=== PATIENT | male | born 1965 | race Caucasian/White ===

== ENCOUNTER 2025-01-18 18:40 | Inpatient (IN) | payer OTHER ==
[~2025-01-18] VITALS: Ht 175.3 cm; Wt 98.9 kg
[~2025-01-18 18:40] MED LIST: AMIT10 PO; ASPI81CH PO; CARV25 PO; DOXE75C PO; Enoxaparin 40 MG/0.4 ML SYR SC SCH; GABA400 PO; LEVE500 PO; LISI5 PO; LOVASA; METFORMIN HCL1000 MG PO; PAXIL40 M1 PO; POTASSIUM GLUC; PRAM.125 PO; PRAV10 PO; VITAMIN D2; [UNRECOGNIZED DRUG - CODE]
[2025-01-18] MEDS ORDERED: Lactated Ringer's 1,000 ML IV ONE (19:10)
[2025-01-18 19:40] LABS: BASOPHILS ABSOLUTE AUTO 0.05 K/mm3 (0.00-0.23); BASOPHILS PERCENT AUTO 0 % (0-2); EOSINOPHILS ABSOLUTE AUTO 0.09 K/mm3 (0.00-0.68); EOSINOPHILS PERCENT AUTO 1 % (0-6); Hematocrit 28.7 % (37.0-53.0); Hemoglobin 9.3 g/dL (13.5-17.5); IMMATURE GRAN PERCENT AUTO 1 % (0-1); LYMPHOCYTES ABSOLUTE AUTO 0.62 K/mm3 (0.84-5.20); LYMPHOCYTES PERCENT AUTO 5 % (21-46); MONOCYTES ABSOLUTE AUTO 0.82 K/mm3 (0.16-1.47); MONOCYTES PERCENT AUTO 6 % (4-13); Mean Corpuscular HGB 24.5 pg (26.0-34.0); Mean Corpuscular HGB Conc 32.4 g/dL (31.5-36.5); Mean Corpuscular Volume 76 fL (80-100); Mean Platelet Volume 9.2 fL (9.1-12.4); NEUTROPHILS ABSOLUTE AUTO 11.71 K/mm3 (1.96-9.15); NEUTROPHILS PERCENT AUTO 88 % (41-73); Platelet Count 243 K/mm3 (150-400); RDW Coefficient Variation 17.7 % (11.7-14.2); RDW Standard Deviation 48.8 fL (35.1-46.3); Red Blood Cell Count 3.79 M/mm3 (4.30-5.90); White Blood Cell Count 13.39 K/mm3 (4.00-11.30)
[2025-01-18 19:48] LABS: Albumin, Blood 2.5 g/dL (3.4-5.0); Albumin/Globulin Ratio 0.6 (0.8-1.8); Bilirubin, Total 0.4 mg/dL (0.1-1.0); Bun/Creatinine Ratio 30.9 (12.0-20.0); Calcium, Blood 8.5 mg/dL (8.5-10.1); Creatinine, Blood 1.36 mg/dL (0.60-1.20); Globulin, Blood 3.9 g/dL (2.2-4.0); Potassium, Blood 4.4 mmol/L (3.5-5.5); Total Protein, Blood 6.4 g/dL (6.4-8.2)
[2025-01-18 19:52] LABS: CORONAVIRUS COVID-19 AG Negative (NEGATIVE); INFLUENZA A AG Negative (NEGATIVE); INFLUENZA B AG Negative (NEGATIVE)
[2025-01-18] MEDS ORDERED: Piperacillin/Tazobactam Sod 3.375 GM in NS 100 ML IV ONE (20:10)
[2025-01-18] MEDS ORDERED: NS 1,000 ML IV SCH (20:20)
[2025-01-18 20:36] LABS: Base Excess Venous -4.9 mmol/L; Bicarbonate Venous 20.9 mmol/L (24.0-30.0); pH Blood Venous 7.41 (7.34-7.37)
[2025-01-18 20:57] LABS: Source, Urine Clean Catch
[2025-01-18 21:06] LABS: Appearance, Urine Clear (Clear); Bilirubin, Urine Neg (Neg); Blood, Urine 3+ (Neg); Color, Urine Yellow (P-Yellow); Glucose Qualitative, Urine 2+ (Neg); Ketones, Urine Neg (Neg); Leukocyte Esterase, Urine Neg (Neg); Nitrite, Urine Neg (Neg); Protein, Urine 4+ (Neg); Specific Gravity, Urine 1.015 (1.003-1.022); Urobilinogen, Urine NORM (Normal)
[2025-01-18 21:15] LABS: Amorphous Light (0-Heavy); Bacteria Rare /hpf; Red Blood Cells, Urine 0-2 /hpf (0-2); Squamous Epithelial Cells Few /hpf (Few); White Blood Cells, Urine 0-2 /hpf (0-5)
[2025-01-18] MEDS ORDERED: Vancomycin HCL 2,000 MG in NS 500 ML IV ONE (21:20)
[2025-01-18 22:30] VITALS: BP 159/80
[2025-01-18] MEDS ORDERED: AMLODIPINE BESY10 MG PO (22:42)
[2025-01-18] MEDS ORDERED: BASAGLAR K100 UNIT/3 SC (22:44)
[2025-01-18] MEDS ORDERED: TRAZ50 PO (22:46)
[2025-01-18] MEDS ORDERED: JANTOVEN2 MG PO (22:47)
[2025-01-18] MEDS ORDERED: LIPITOR80 MG PO (22:49)
[2025-01-18] MEDS ORDERED: ENOX120I SC (22:51)
[2025-01-18] MEDS ORDERED: ARIPIPRAZOLE2 M1 PO (22:53)
[2025-01-18] MEDS ORDERED: HUMALOG KW100 UNIT/1 SC (23:00)
[2025-01-18] MEDS ORDERED: FentaNYL Citrate 50 MCG/ML 2 ML Injection IV PRN (23:10)
[2025-01-18] MEDS ORDERED: Ondansetron HCl 2 MG / ML 2ML Vial IV PRN (23:10)
[2025-01-18] MEDS ORDERED: Acetaminophen 325 MG TABLET PO PRN (23:15)
[2025-01-18] MEDS ORDERED: NS 1,000 ML IV ONE (23:15)
[2025-01-18] MEDS ORDERED: FLU VACC TS2024-25(6MOS UP)/PF 45 MCG/0.5 ML SYRINGE IM ONE (23:15)
[2025-01-18] MEDS ORDERED: ARIPiprazole 10 MG Tab PO SCH (23:50)
[2025-01-18] MEDS ORDERED: PARoxetine HCl 20 MG Tab PO SCH (23:50)
[2025-01-19] MEDS ORDERED: CeFAZolin Sodium 1,000 MG in NS 50 ML IV SCH
[2025-01-19] MEDS ORDERED: Insulin Glargine-Yfgn 100 Unit/mL 3 ML SYR SC SCH (00:13)
[2025-01-19 00:48] LABS: International Normalized Ratio 3.55; Prothrombin Time Results 34.6 Sec (9.7-11.5)
[2025-01-19] MEDS ORDERED: Heparin Sodium,Porcine/0.5 NS 500 ML IV SCH ×2 (01:00→21:45)
[2025-01-19 04:00] VITALS: BP 134/79
[2025-01-19 04:06] LABS: Albumin, Blood 2.4 g/dL (3.4-5.0); Albumin/Globulin Ratio 0.6 (0.8-1.8); Bilirubin, Total 0.4 mg/dL (0.1-1.0); Bun/Creatinine Ratio 29.2 (12.0-20.0); Calcium, Blood 8.3 mg/dL (8.5-10.1); Creatinine, Blood 1.2 mg/dL (0.60-1.20); Globulin, Blood 3.8 g/dL (2.2-4.0); Potassium, Blood 4.1 mmol/L (3.5-5.5); Total Protein, Blood 6.2 g/dL (6.4-8.2)
[2025-01-19 04:07] LABS: BASOPHILS ABSOLUTE AUTO 0.04 K/mm3 (0.00-0.23); BASOPHILS PERCENT AUTO 0 % (0-2); EOSINOPHILS ABSOLUTE AUTO 0.01 K/mm3 (0.00-0.68); EOSINOPHILS PERCENT AUTO 0 % (0-6); Hematocrit 26.6 % (37.0-53.0); Hemoglobin 8.7 g/dL (13.5-17.5); IMMATURE GRAN ABSOLUTE AUTO 0.06 K/mm3 (0.00-0.10); IMMATURE GRAN PERCENT AUTO 1 % (0-1); LYMPHOCYTES PERCENT AUTO 6 % (21-46); MONOCYTES ABSOLUTE AUTO 0.72 K/mm3 (0.16-1.47); MONOCYTES PERCENT AUTO 7 % (4-13); Mean Corpuscular HGB 24.9 pg (26.0-34.0); Mean Corpuscular HGB Conc 32.7 g/dL (31.5-36.5); Mean Corpuscular Volume 76 fL (80-100); NEUTROPHILS ABSOLUTE AUTO 9.35 K/mm3 (1.96-9.15); NEUTROPHILS PERCENT AUTO 86 % (41-73); RDW Coefficient Variation 18.2 % (11.7-14.2); RDW Standard Deviation 49.9 fL (35.1-46.3); White Blood Cell Count 10.88 K/mm3 (4.00-11.30)
[2025-01-19 04:15] LABS: Mean Platelet Volume 10.1 fL (9.1-12.4); Platelet Count 216 K/mm3 (150-400)
[2025-01-19] MEDS ORDERED: CefTRIAXone Sodium 2,000 MG in NS 100 ML IV SCH (06:15)
--- NOTE | 2025-01-19 06:30 | NUR ---
SHIFT SUMMARY PT HAS TOLERATED NIGHT WELL WITH NO REAL CHANGES IN STATUS. PT ARRIVED TO PCU A&O X 4 AND HAS REMAINED SO FOR DURATION OF NIGHT. PT STATES NO COMPLAINT OF PAIN. PTs TEMPERATURE HAS FLUCTUATED WITH TMAX OF 101. PT HAS BEEN NPO SINCE MIDNIGHT AND HAS BEEN RESTING COMFORTABLY IN ROOM. WILL CONTINUE TO MONITOR UNTIL REPORT PASSED TO DAY SHIFT TEAM.
[2025-01-19] MEDS ORDERED: Insulin Human Lispro 100 Units/ML 3ML Syringe SC SCH (07:30)
[2025-01-19 08:36] VITALS: BP 158/81
[2025-01-19] MEDS ORDERED: Gabapentin 300 MG Cap PO SCH (09:00)
[2025-01-19 09:59] LABS: International Normalized Ratio 2.79
[2025-01-19] MEDS ORDERED: Vancomycin HCL 1,250 MG in NS 250 ML IV SCH (10:00)
[2025-01-19 10:52] LABS: Prothrombin Time Results 27.7 Sec (9.7-11.5)
[2025-01-19 11:07] VITALS: BP 139/79
[2025-01-19 16:31] VITALS: BP 175/86
[2025-01-19] MEDS ORDERED: LISI20 PO (17:58)
--- NOTE | 2025-01-19 18:02 | NUR ---
SHIFT SUMMARY: PT HAS BEEN A&Ox4, COOPERATIVE W/CARE, ABLE TO MAKE NEEDS KNOWN. PT's TEMPERATURE CONTINUES TO FLUCTUATE, MAX THIS SHIFT OF 100.3 THAT TITRATED DOWN W/OUT MEDICATION. PT W/HX OF AMPUTATIONS TO BLE, BELOW KNEE TO RLE AND TRANSMETATARSAL TO LLE. PODIATRY CONSULTATION COMPLETED THIS SHIFT, NO CHANGE IN ABX ORDERS AND NO CURRENT PLAN FOR SURGICAL INTERVENTION, WOUND CLEANED AND DRESSED THIS SHIFT. PT HAS DENIED SOB, O2 SATS >93% ON RA. PT HAS DENIED CHEST PAIN, TELEMETRY DC'd PER ORDERS AND PT TRANSITIONED TO MEDICAL STATUS. HEPARIN INFUSION ON SB PER ORDERS UNTIL INR IS BELOW A CERTAIN THRESHOLD, NEXT REDRAW SCHEDULED FOR 2100 TONIGHT. PT RESTING IN BED, CALL LIGHT IN REACH.
[2025-01-19] MEDS ORDERED: Lisinopril 20 MG Tab PO ONE (18:50)
[2025-01-19] MEDS ORDERED: AmLODIPine Besylate 5 MG Tab PO ONE (18:50)
[2025-01-19] MEDS ORDERED: Atorvastatin 40 MG Tab PO SCH (21:00)
[2025-01-19 21:21] LABS: Anti-Xa UFH, PHA Monitoring <0.10 IU/mL; International Normalized Ratio 2.34
[2025-01-19 21:23] LABS: Vancomycin, Trough 13.2 ug/mL (5.0-10.0)
[2025-01-19 21:30] VITALS: BP 178/84
[2025-01-19 21:41] LABS: Prothrombin Time Results 23.5 Sec (9.7-11.5)
[2025-01-20 04:08] VITALS: BP 153/84
[2025-01-20 04:24] LABS: BASOPHILS ABSOLUTE AUTO 0.04 K/mm3 (0.00-0.23); BASOPHILS PERCENT AUTO 0 % (0-2); EOSINOPHILS ABSOLUTE AUTO 0.12 K/mm3 (0.00-0.68); EOSINOPHILS PERCENT AUTO 1 % (0-6); Hematocrit 27.7 % (37.0-53.0); Hemoglobin 8.9 g/dL (13.5-17.5); IMMATURE GRAN ABSOLUTE AUTO 0.03 K/mm3 (0.00-0.10); IMMATURE GRAN PERCENT AUTO 0 % (0-1); LYMPHOCYTES ABSOLUTE AUTO 0.89 K/mm3 (0.84-5.20); LYMPHOCYTES PERCENT AUTO 10 % (21-46); MONOCYTES ABSOLUTE AUTO 0.69 K/mm3 (0.16-1.47); MONOCYTES PERCENT AUTO 8 % (4-13); Mean Corpuscular HGB 24.5 pg (26.0-34.0); Mean Corpuscular HGB Conc 32.1 g/dL (31.5-36.5); Mean Corpuscular Volume 76 fL (80-100); Mean Platelet Volume 9.2 fL (9.1-12.4); NEUTROPHILS ABSOLUTE AUTO 7.36 K/mm3 (1.96-9.15); NEUTROPHILS PERCENT AUTO 81 % (41-73); Platelet Count 220 K/mm3 (150-400); RDW Standard Deviation 50.2 fL (35.1-46.3); Red Blood Cell Count 3.63 M/mm3 (4.30-5.90); White Blood Cell Count 9.13 K/mm3 (4.00-11.30)
--- NOTE | 2025-01-20 04:25 | NUR ---
SHIFT SUMMARY PATIENT ALERT AND ORINETED X4. HAD NO COMPLAINTS OF PAIN OR SHORTNESS OF BREATH. ON ROOM AIR WITH SPO2 >90%. VITAL SIGNS STABLE. NO ACUTE ISSUES NOTED OVERNIGHT. WILL CONTINUE TO MONITOR. CALL LIGHT WITHIN REACH.
[2025-01-20 04:44] LABS: Bun/Creatinine Ratio 20.6 (12.0-20.0); Calcium, Blood 8.7 mg/dL (8.5-10.1); Creatinine, Blood 0.78 mg/dL (0.60-1.20); Potassium, Blood 3.4 mmol/L (3.5-5.5)
[2025-01-20] MEDS ORDERED: Dose Adjust by Pharmacy XX STA ×2 (05:53→13:35)
[2025-01-20] MEDS ORDERED: Heparin Sodium 5000 Units/ML 1ML MDV IV ONE ×3 (05:55→21:05)
[2025-01-20 08:48] VITALS: BP 168/80
[2025-01-20 09:50] LABS: Vancomycin, Trough 14.6 ug/mL (5.0-10.0)
[2025-01-20] MEDS ORDERED: Vancomycin HCL 1,500 MG in NS 250 ML IV SCH (10:30)
[2025-01-20] MEDS ORDERED: Potassium Chloride 10 Meq Tablet SA PO ONE (13:55)
--- NOTE | 2025-01-20 14:52 | NUR ---
SHIFT SUMMARY/TRANSFER: PT HAS BEEN A&Ox4, ABLE TO COMMUNICATE NEEDS AND IS COOPERATIVE W/CARE. PT DENIES SOB OR CHEST PAIN, STATES HE FEELS BETTER COMPARED TO DATABASE MODELER. RA SATS >93%. HEPARIN INFUSING PER ORDERS. PT CONTINUES 1-2 ASSIST FOR TRANSFERING, USING URINAL INDEPENDENTLY. DRESSING TO LLE SLIGHTLY SOILED, WOUND CARE COMPLETED AND NEW DRESSINGS APPLIED THIS SHIFT. PT EXPECTED TO REQUIRE ABX THERAPY BID FOR UP TO 6 WEEKS, PLAN FOR HOW THIS WILL BE BEST EXECUTED IS BEING DISCUSSED. PT RECEIVES NEW ROOM ASSIGNMENT IN MEDICAL DEPT, REPORT GIVEN TO PITA BRIGGS. PT IN PROCESS OF BEING TRANSFERED.
--- NOTE | 2025-01-20 17:41 | NUR ---
NO CHANGES SINCE PT HAS TRANSFERED FROM [facility]
[2025-01-20 19:27] VITALS: BP 160/81
--- NOTE | 2025-01-20 19:51 | NUR ---
CARE ASSUMED FOR THIS PATIENT. REPORT RECEIVED FROM DAY RN. PATIENT ALERT, ORIENTATED. ABLE TO MAKE NEEDS KNOWN AND ABLE TO PARTICIPATE IN BEDSIDE REPORT. CONTINUE CARE.
[2025-01-20] MEDS ORDERED: AmLODIPine Besylate 5 MG Tab PO SCH (21:00)
[2025-01-20] MEDS ORDERED: Lisinopril 20 MG Tab PO SCH (21:00)
[2025-01-20] MEDS ORDERED: NS 250 ML IV PRN (21:20)
[2025-01-20] MEDS ORDERED: TraZODone HCl 50 MG Tab PO ONE (23:35)
[2025-01-21 03:20] LABS: BASOPHILS ABSOLUTE AUTO 0.02 K/mm3 (0.00-0.23); BASOPHILS PERCENT AUTO 0 % (0-2); EOSINOPHILS ABSOLUTE AUTO 0.21 K/mm3 (0.00-0.68); EOSINOPHILS PERCENT AUTO 3 % (0-6); Hematocrit 26.8 % (37.0-53.0); Hemoglobin 8.7 g/dL (13.5-17.5); IMMATURE GRAN ABSOLUTE AUTO 0.03 K/mm3 (0.00-0.10); IMMATURE GRAN PERCENT AUTO 1 % (0-1); LYMPHOCYTES ABSOLUTE AUTO 1.17 K/mm3 (0.84-5.20); LYMPHOCYTES PERCENT AUTO 19 % (21-46); MONOCYTES ABSOLUTE AUTO 0.53 K/mm3 (0.16-1.47); MONOCYTES PERCENT AUTO 9 % (4-13); Mean Corpuscular HGB 24.4 pg (26.0-34.0); Mean Corpuscular HGB Conc 32.5 g/dL (31.5-36.5); Mean Corpuscular Volume 75 fL (80-100); NEUTROPHILS ABSOLUTE AUTO 4.28 K/mm3 (1.96-9.15); NEUTROPHILS PERCENT AUTO 69 % (41-73); Platelet Count 253 K/mm3 (150-400); RDW Coefficient Variation 17.8 % (11.7-14.2); RDW Standard Deviation 48.4 fL (35.1-46.3); Red Blood Cell Count 3.57 M/mm3 (4.30-5.90); White Blood Cell Count 6.24 K/mm3 (4.00-11.30)
[2025-01-21 03:24] LABS: Anion Gap 9 mmol/L (3-11); Blood Urea Nitrogen 15 mg/dL (8-24); Bun/Creatinine Ratio 16.6 (12.0-20.0); CO2, Blood 23 mmol/L (21-32); Calcium, Blood 8.6 mg/dL (8.5-10.1); Chloride, Blood 107 mmol/L (98-108); Creatinine, Blood 0.91 mg/dL (0.60-1.20); Glomerular Filtration Rate 96 (60-); Glucose, Blood 108 mg/dL (70-99); Magnesium, Blood 1.5 mg/dL (1.6-2.4); Phosphorus, Blood 3.4 mg/dL (2.5-4.9); Potassium, Blood 3.5 mmol/L (3.5-5.5); Sodium, Blood 135 mmol/L (136-145)
[2025-01-21 04:01] VITALS: BP 149/77
[2025-01-21] MEDS ORDERED: Dose Adjust by Pharmacy XX STA ×2 (04:44→09:50)
--- NOTE | 2025-01-21 05:13 | NUR ---
Patient appeared to have slept well last night. Had a one time dose of Trazadone. Heparin drip infusing. Left foot bebo wrapped. CDI Patient states he is not having any pain. Plan to continue with IV ABX.
[2025-01-21 07:37] VITALS: BP 139/82
[2025-01-21 09:31] LABS: Anti-Xa UFH, PHA Monitoring 0.41 IU/mL; International Normalized Ratio 1.42; Prothrombin Time Results 14.8 Sec (9.7-11.5)
[2025-01-21 16:16] VITALS: BP 187/74
--- NOTE | 2025-01-21 16:25 | NUR ---
NO ACUTE CHANGES THIS SHIFT. CHANGES DRESSING TO LLE. SKIN APPEAR MACERATED. SKIN CLEANSED CALCIUM ALGINATE ADDED TO VERY SMALL AREAS WERE EXUDATE APPEARED TO BE COMING FROM. NON ADHERENT DRESSING AND GUAZE, KERLEX WITH YESSY BANDAGE. REWRAPPED THIS AFTERNOON. APPEARS TO BE HELPING.
[2025-01-21] MEDS ORDERED: Warfarin Sodium 4 MG Tab PO SCH (18:00)
[2025-01-21] MEDS ORDERED: Nystatin 100,000 Unit/GM Ointment 15 GM TOP SCH (19:20)
[2025-01-21 19:25] VITALS: BP 180/72
[2025-01-21 22:41] LABS: Vancomycin, Trough 19.4 ug/mL (5.0-10.0)
[2025-01-22 03:12] VITALS: BP 184/76
--- NOTE | 2025-01-22 03:54 | NUR ---
SHIFT SUMMARY PT ALERT ORIENTED X 4 ABLE TO VERBALIZE NEEDS REMAINS ON BEDREST R/T RT AKA AND LT TOES AMPUTATION. DRESSING WAS CHANGED TO LT FOOT EBONY INTACT WITH SMALL AMOUNT OF SEROSANGUINOUS DRAINAGE. SITE LOOKS GOOD. REMAINS ON VANCO AND ROCEPHIN ORDERED. VANCO TROUGH WAS DONE AND WAS 19.4 NO CHANGES WERE MADE. WILL BE RECHECKED ON 01/23 AT 0900. CONTINUES ON HEPARIN AT 26U/KG/HR OR 42.1 ML/HR. LABS TO BE CHECKED THIS AM. PICC LINE INTACT TO RT UPPER ARM WITH SOME DRAINAGE UNDER DRESSING. NO C/O PAIN THIS SHIFT. BP REMAINS ELEVATED AT 180/72. ALL OTHER VSS ON RA SATTING AT 98%. WILL BE DCED TO [facility] WHEN ABLE. WILL REQUIRE 6 WEEKS OF IV ANTIBIOTICS. RESTING IN BED AT THIS TIME WITH CALL LIGHT IN REACH
[2025-01-22 05:00] LABS: BASOPHILS ABSOLUTE AUTO 0.05 K/mm3 (0.00-0.23); BASOPHILS PERCENT AUTO 1 % (0-2); EOSINOPHILS ABSOLUTE AUTO 0.26 K/mm3 (0.00-0.68); EOSINOPHILS PERCENT AUTO 4 % (0-6); Hematocrit 28.4 % (37.0-53.0); Hemoglobin 9.1 g/dL (13.5-17.5); IMMATURE GRAN ABSOLUTE AUTO 0.05 K/mm3 (0.00-0.10); IMMATURE GRAN PERCENT AUTO 1 % (0-1); LYMPHOCYTES ABSOLUTE AUTO 1.53 K/mm3 (0.84-5.20); LYMPHOCYTES PERCENT AUTO 26 % (21-46); MONOCYTES PERCENT AUTO 10 % (4-13); Mean Corpuscular HGB 24.8 pg (26.0-34.0); Mean Corpuscular Volume 77 fL (80-100); Mean Platelet Volume 8.8 fL (9.1-12.4); NEUTROPHILS ABSOLUTE AUTO 3.52 K/mm3 (1.96-9.15); NEUTROPHILS PERCENT AUTO 59 % (41-73); Platelet Count 244 K/mm3 (150-400); RDW Coefficient Variation 17.8 % (11.7-14.2); RDW Standard Deviation 49.9 fL (35.1-46.3); Red Blood Cell Count 3.67 M/mm3 (4.30-5.90); White Blood Cell Count 6.01 K/mm3 (4.00-11.30)
[2025-01-22 05:35] LABS: International Normalized Ratio 1.33; Prothrombin Time Results 13.9 Sec (9.7-11.5)
[2025-01-22 06:20] LABS: Albumin/Globulin Ratio 0.5 (0.8-1.8); Bilirubin, Total 0.2 mg/dL (0.1-1.0); Bun/Creatinine Ratio 17.4 (12.0-20.0); Calcium, Blood 8.8 mg/dL (8.5-10.1); Creatinine, Blood 0.86 mg/dL (0.60-1.20); Globulin, Blood 4.3 g/dL (2.2-4.0); Potassium, Blood 3.7 mmol/L (3.5-5.5); Total Protein, Blood 6.3 g/dL (6.4-8.2)
[2025-01-22 08:05] VITALS: BP 175/61
[2025-01-22] MEDS ORDERED: ACET325 PO (10:43)
[2025-01-22] MEDS ORDERED: CEFTRIAXONE2 G1 IV (10:43)
[2025-01-22] MEDS ORDERED: VANCOMYCIN HCL1 G1 IV (10:45)
[2025-01-22] MEDS ORDERED: VISBIOME 112.51 EACH PO (10:46)
[2025-01-22] MEDS ORDERED: ENOX100I SC (10:47)
[2025-01-22] MEDS ORDERED: HYDROCODONE-AC1 EA19 PO (10:48)
--- NOTE | 2025-01-22 11:00 | NUR ---
PT INR 1.33. PT ON HEPARIN DRIP FOR BRIDGE TO COUMADEN. PLAN TO DISCHARGE TODAY TO SNF. SPOKE WITH PHARMACIST. PT COULD RECEIVE 1 X DOSE OF LOVENOX BEFORE D/C AND CONTINUE LOVENOX BID UNTIL COUMADEN IS THERAPUTIC RANGE. AWAITING CALL BACK FROM DR. WATTS FOR ORDERS.
[2025-01-22] MEDS ORDERED: Enoxaparin 100 MG/ML 1ML SYR SC ONE (11:20)
--- NOTE | 2025-01-22 12:41 | NUR ---
REPORT GIVEN TO EDEL AGRCIA [facility]. PT DISCHARGED TO SNF WITH PICC LINE IN PLACE. ORIENTED X4, WOUND CARE COMPLETED BEFORE DISCHARGE.
[2025-01-22] MEDS ORDERED: Warfarin Sodium 4 MG Tab PO SCH (18:00)
== END 2025-01-22 11:23 | DRG 564 ==
LOC: ER 18:40 → PCU 20:53 → MEDS 20:53 → PCU 22:03 → MEDS 01-20 15:05
PROVIDERS: Family Medicine; Student in an Organized Health Care Education/Training Program; ADMIT Internal Medicine
PROC: 3E03329 Introduction of Other Anti-infective into Peripheral Vein, Percutaneous Approach (ICD-10-PCS; principal; 2025-01-18)
PROC: 02HV33Z Insertion of Infusion Device into Superior Vena Cava, Percutaneous Approach (ICD-10-PCS; 2025-01-18)
PROC: B548ZZA Ultrasonography of Superior Vena Cava, Guidance (ICD-10-PCS; 2025-01-18)
DX: T87.44 Infection of amputation stump, left lower extremity (principal); A41.9 Sepsis, unspecified organism; N17.9 Acute kidney failure, unspecified; M86.172 Other acute osteomyelitis, left ankle and foot; I10 Essential (primary) hypertension; Z28.21 Immunization not carried out because of patient refusal; Z89.422 Acquired absence of other left toe(s); Z79.899 Other long term (current) drug therapy; Z79.84 Long term (current) use of oral hypoglycemic drugs; Z79.82 Long term (current) use of aspirin; I25.2 Old myocardial infarction; Z89.511 Acquired absence of right leg below knee; Z79.4 Long term (current) use of insulin; E11.69 Type 2 diabetes mellitus with other specified complication; D64.9 Anemia, unspecified; E11.65 Type 2 diabetes mellitus with hyperglycemia; E11.40 Type 2 diabetes mellitus with diabetic neuropathy, unspecified; E78.5 Hyperlipidemia, unspecified; Z95.2 Presence of prosthetic heart valve; Z86.711 Personal history of pulmonary embolism; Z79.01 Long term (current) use of anticoagulants
CPT/HCPCS: 36415; 36569; 73590; 73630; 73701; 80048; 80053; 80069; 80202; 81001; 82803; 82947; 83605; 83735; 83880; 84145; 85025; 85520; 85610; 85730; 87428-QW; 96361; 96365; 99284-25; A9270; C1751; J0690; J0696; J1644; J1650; J1815; J2543; J3370; J7030; J7040; J7050; J7120; Q9967

== ENCOUNTER 2025-06-01 00:26 | Day surgery (SDC) | payer OTHER ==
[~2025-06-01 00:26] MED LIST changes: +ABILIFY MYCITE10 M2 PO; +ACET325 PO; +AMLODIPINE BESY10 MG PO; +ARIPIPRAZOLE2 M1 PO; +ASCO500 PO; +BASAGLAR K100 UNIT/3 SC; +CEFTRIAXONE2 G1 IV; +ENOX100I SC; +ENOX120I SC; -Enoxaparin 40 MG/0.4 ML SYR SC SCH; +FEROSUL325 M1 PO; +GABA300 PO; -GABA400 PO; +HUMALOG KW100 UNIT/1 SC; +HYDROCODONE-AC1 EA19 PO; +Hair, Skin & N1 EACH PO; +JANTOVEN2 MG PO; +LIPITOR80 MG PO; +LISI20 PO; +MIRAPEX PO; +PARO20 PO; -PAXIL40 M1 PO; +POTCHL20ER PO; +TRAZ50 PO; +VANCOMYCIN HCL1 G1 IV; +VISBIOME 112.51 EACH PO; +VITAMIN D325 MC3 PO; +ZENPEP DR 25,01 EAC1 PO; +ZENPEP PO; +ZESTRIL40 M1 PO
== END 2025-06-01 23:00 | disposition home or self-care (01) ==
LOC: WOUND 00:26
DX: T25.222A Burn of second degree of left foot, initial encounter (principal); E11.51 Type 2 diabetes mellitus with diabetic peripheral angiopathy without gangrene; D50.9 Iron deficiency anemia, unspecified; I25.10 Atherosclerotic heart disease of native coronary artery without angina pectoris; I10 Essential (primary) hypertension; G47.33 Obstructive sleep apnea (adult) (pediatric); Z89.511 Acquired absence of right leg below knee; Z79.4 Long term (current) use of insulin; Z79.84 Long term (current) use of oral hypoglycemic drugs; Z88.0 Allergy status to penicillin; Z88.8 Allergy status to other drugs, medicaments and biological substances
CPT/HCPCS: G0463

== ENCOUNTER 2025-07-29 13:07 | Inpatient (IN) | payer OTHER ==
[~2025-07-29] VITALS: Ht 172.7 cm; Wt 88.3 kg
[2025-07-29] MEDS ORDERED: NS 1,000 ML IV SCH ×2 (14:05→17:00)
[2025-07-29] MEDS ORDERED: Clindamycin 900mg in D5W 50ML 50 ML IV ONE (14:05)
[2025-07-29] MEDS ORDERED: Cefepime HCl 2,000 MG in NS 100 ML IV ONE (14:05)
[2025-07-29] MEDS ORDERED: FentaNYL Citrate 50 MCG/ML 2 ML Injection IV ONE ×2 (14:05→15:40)
[2025-07-29] MEDS ORDERED: Vancomycin (Pharmacy Consult) IV PRN (14:05)
[2025-07-29 14:28] LABS: BASOPHILS ABSOLUTE AUTO 0.03 K/mm3 (0.00-0.23); BASOPHILS PERCENT AUTO 0 % (0-2); EOSINOPHILS ABSOLUTE AUTO 0.03 K/mm3 (0.00-0.68); EOSINOPHILS PERCENT AUTO 0 % (0-6); Hematocrit 24.0 % (37.0-53.0); Hemoglobin 8.2 g/dL (13.5-17.5); IMMATURE GRAN ABSOLUTE AUTO 0.18 K/mm3 (0.00-0.10); IMMATURE GRAN PERCENT AUTO 1 % (0-1); LYMPHOCYTES ABSOLUTE AUTO 0.87 K/mm3 (0.84-5.20); LYMPHOCYTES PERCENT AUTO 6 % (21-46); MONOCYTES ABSOLUTE AUTO 0.88 K/mm3 (0.16-1.47); MONOCYTES PERCENT AUTO 6 % (4-13); Mean Corpuscular HGB Conc 34.2 g/dL (31.5-36.5); Mean Corpuscular Volume 77 fL (80-100); NEUTROPHILS ABSOLUTE AUTO 12.35 K/mm3 (1.96-9.15); NEUTROPHILS PERCENT AUTO 86 % (41-73); NRBC ABSOLUTE 0.00 K/mm3 (0.00-0.02); NRBC Auto 0.0 /100 WBC (0.0-0.2); Platelet Count 461 K/mm3 (150-400); RDW Coefficient Variation 15.0 % (11.7-14.2); RDW Standard Deviation 42.5 fL (35.1-46.3)
[2025-07-29 14:59] LABS: Alanine Aminotransfer (ALT/SGP 30.0 U/L (12-78); Albumin, Blood 1.4 g/dL (3.4-5.0); Albumin/Globulin Ratio 0.3 (0.8-1.8); Anion Gap 10.0 mmol/L (3-11); Aspartate Aminotrans (AST/SGOT 28.0 U/L (12-37); Bilirubin, Total 0.1 mg/dL (0.1-1.0); Blood Urea Nitrogen 22.0 mg/dL (8-24); CO2, Blood 24.0 mmol/L (21-32); Calcium, Blood 8.7 mg/dL (8.5-10.1); Chloride, Blood 98.0 mmol/L (98-108); Creatinine, Blood 1.57 mg/dL (0.60-1.20); Globulin, Blood 5.1 g/dL (2.2-4.0); Glucose, Blood 303.0 mg/dL (70-99); Potassium, Blood 3.0 mmol/L (3.5-5.5); Sodium, Blood 129.0 mmol/L (136-145); Total Protein, Blood 6.5 g/dL (6.4-8.2)
[2025-07-29] MEDS ORDERED: HYDROmorphone HCl/Pf 1MG SYR IV ONE (15:40)
[2025-07-29] MEDS ORDERED: Tranexamic Acid 100 ML IV SCH (16:35)
[2025-07-29] MEDS ORDERED: Naloxone HCl 0.4MG / ML 1ML Vial IV PRN (16:45)
[2025-07-29] MEDS ORDERED: FentaNYL Citrate 50 MCG/ML 2 ML Injection IV PRN (16:45)
[2025-07-29] MEDS ORDERED: Ondansetron HCl 2 MG / ML 2ML Vial IV PRN (16:45)
[2025-07-29] MEDS ORDERED: Vancomycin (Pharmacy Consult) IV SCH (16:50)
[2025-07-29] MEDS ORDERED: Insulin Regular 100 UNIT/ML 10ML Vial SC SCH (18:00)
[2025-07-29 18:28] VITALS: BP 155/78
[2025-07-29] MEDS ORDERED: TRAZ50 PO (18:50)
--- NOTE | 2025-07-29 18:55 | NUR ---
pt to room @1840 AXO4. VSS. KCL INFUSION STARTED. MED REC COMPLETED WITH FAMILY ASSISTANCE. PT WITH FOUL SMELLING WOUND TO L FOOT - ESCHAR PRESENT. PT TO UNIT WITH 2 IVS - FLUSHED. PT NPO CURRENTLY FOR POSSIBILITY OF SURGERY. AWAQITING TO HAND OFF CARE TO ONCOMING RN.
[2025-07-29] MEDS ORDERED: Sodium Hypochlorite 480 ML BTL (0.25%) ONE (19:24)
--- NOTE | 2025-07-29 19:30 | NUR ---
ASSUMED CARE ASSUMED CARE OF PT AT SHIFT CHANGE, BEDSIDE REPORT COMPLETE WITH DAY RN. FAMILY ATTENTIVE AT BEDSIDE. PT A/OX4 WITH VSS. REPORTS PAIN AT TOLERABLE LEVEL. DENIES CHEST PAIN, SOB, OR NEEDS AT THIS TIME. ON RA, RESP EVEN/UNLABORED. IS NPO, SPONGE STICK PROVIDED AT THIS TIME. 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 BILATERAL IV'S PATENT. HAS CALL LIGHT IN REACH, ABLE TO MAKE NEEDS KNOWN.
[2025-07-29] MEDS ORDERED: SuccINYLCHOLINE Chloride 100 MG/5 ML 5MLSYR ONE (20:36)
[2025-07-29] MEDS ORDERED: Midazolam HCl 1MG / ML 2ML Vial ONE (20:36)
[2025-07-29] MEDS ORDERED: Lactobacil 2-S.Thermo-Bifido 1 1 Cap PO SCH (21:00)
[2025-07-29] MEDS ORDERED: Dexamethasone Sod Phos 10 MG/ML 1ML VIAL ONE (21:53)
[2025-07-29] MEDS ORDERED: Ondansetron HCl 2 MG / ML 2ML Vial ONE (21:53)
[2025-07-29] MEDS ORDERED: FentaNYL Citrate 50 MCG/ML 2 ML Injection ONE (22:00)
[2025-07-29] MEDS ORDERED: HYDROmorphone HCl/Pf 1MG SYR ONE (22:04)
[2025-07-29] MEDS ORDERED: Tranexamic Acid 100 ML IV ONE (22:06)
--- NOTE | 2025-07-29 22:38 | NUR ---
TRANSFER PT TO OR VIA HOSPITAL BED WITH OR NURSES AT THIS TIME. FAMILY AT BEDSIDE. PERSONAL BELONGINGS SENT TO ICU FOR RECOVERY. PT MEDICATED FOR PAIN AND CBG COLLECTED PRIOR TO TRANSFER. OR NURSES AWARE. CHART SENT WITH PT.
[2025-07-29] MEDS ORDERED: Sugammadex Sodium 200 MG/2ML SDV (100 MG/ML) ONE (22:40)
--- NOTE | 2025-07-29 22:45 | NUR ---
RECEIVED FROM OR RECEIVED FROM OR S/P LEFT BKA. O2 SATS 83% ON RA UPON ARRIVAL. PT WITH SNORING RESPIRATIONS. PLACED ON 4L NC AND HOB INCREASED- SATS INCREASED TO >90% WITH THIS. PT ROUSES TO VERBAL STIMULI BUT QUICKLY FALLS BACK TO SLEEP. LEFT LOWER LEG WITH DRSG/WRAP C/D/I AT THIS TIME. BP STABLE. HR 90s, NSR WITH FREQUENT PVCs AND OCCASIONAL TRIGEMINY. AFEBRILE. COLOR PALE, SKIN IS COOL AND CLAMMY. SEE ADMIT ASSESSMENT FOR FULL ASSESSMENT.
[2025-07-29 23:00] VITALS: BP 102/60
[2025-07-29 23:15] VITALS: BP 111/65
[2025-07-29 23:30] VITALS: BP 99/61
[2025-07-29 23:42] LABS: Hematocrit 21.7 % (37.0-53.0); Hemoglobin 6.9 g/dL (13.5-17.5)
[2025-07-29 23:45] VITALS: BP 106/64
[2025-07-30] VITALS (97 sets, daily range): BP systolic 77–153; BP diastolic 42–83
[2025-07-30] MEDS ORDERED: Clindamycin 900mg in D5W 50ML 50 ML IV SCH
--- NOTE | 2025-07-30 00:58 | NUR ---
DECREASED HgB HgB RESULT IS 6.9. NO APPARENT BLEEDING NOTED AT SURGICAL SITE. DR RAHMAN NOTIFIED- NEW ORDER GIVEN TO TRANSFUSE 1 UNIT PRBCs AT THIS TIME.
[2025-07-30] MEDS ORDERED: NS 250 ML IV PRN (01:40)
--- NOTE | 2025-07-30 04:00 | NUR ---
SURGICAL SITE BLEEDING MODERATE AMOUNT OF BLEEDING NOTED FROM LEFT BKA SURGICAL SITE. DRSG REINFORCED WITH ABD PADS AND YESSY WRAPS. VSS. WILL CONTINUE TO MONITOR.
[2025-07-30 05:42] LABS: BASOPHILS ABSOLUTE AUTO 0.03 K/mm3 (0.00-0.23); BASOPHILS PERCENT AUTO 0 % (0-2); EOSINOPHILS ABSOLUTE AUTO 0.00 K/mm3 (0.00-0.68); EOSINOPHILS PERCENT AUTO 0 % (0-6); Hematocrit 21.3 % (37.0-53.0); Hemoglobin 6.9 g/dL (13.5-17.5); IMMATURE GRAN ABSOLUTE AUTO 0.35 K/mm3 (0.00-0.10); IMMATURE GRAN PERCENT AUTO 4 % (0-1); LYMPHOCYTES ABSOLUTE AUTO 0.65 K/mm3 (0.84-5.20); LYMPHOCYTES PERCENT AUTO 7 % (21-46); MONOCYTES ABSOLUTE AUTO 0.56 K/mm3 (0.16-1.47); MONOCYTES PERCENT AUTO 6 % (4-13); Mean Corpuscular HGB Conc 32.4 g/dL (31.5-36.5); NEUTROPHILS ABSOLUTE AUTO 8.26 K/mm3 (1.96-9.15); NEUTROPHILS PERCENT AUTO 84 % (41-73); NRBC ABSOLUTE 0.00 K/mm3 (0.00-0.02); NRBC Auto 0.0 /100 WBC (0.0-0.2); Platelet Count 395 K/mm3 (150-400); RDW Coefficient Variation 15.7 % (11.7-14.2); RDW Standard Deviation 47.6 fL (35.1-46.3)
[2025-07-30 05:43] LABS: Mean Corpuscular Volume 83 fL (80-100)
[2025-07-30 06:17] LABS: Magnesium, Blood 1.8 mg/dL (1.6-2.4)
[2025-07-30 06:18] LABS: Alanine Aminotransfer (ALT/SGP 25.0 U/L (12-78); Albumin, Blood 1.1 g/dL (3.4-5.0); Albumin/Globulin Ratio 0.3 (0.8-1.8); Anion Gap 8.0 mmol/L (3-11); Aspartate Aminotrans (AST/SGOT 25.0 U/L (12-37); Bilirubin, Total 0.3 mg/dL (0.1-1.0); Blood Urea Nitrogen 25.0 mg/dL (8-24); CO2, Blood 24.0 mmol/L (21-32); Calcium, Blood 7.4 mg/dL (8.5-10.1); Chloride, Blood 106.0 mmol/L (98-108); Creatinine, Blood 1.86 mg/dL (0.60-1.20); Globulin, Blood 3.7 g/dL (2.2-4.0); Glucose, Blood 302.0 mg/dL (70-99); Potassium, Blood 3.4 mmol/L (3.5-5.5); Sodium, Blood 135.0 mmol/L (136-145); Total Protein, Blood 4.8 g/dL (6.4-8.2)
--- NOTE | 2025-07-30 06:32 | NUR ---
SHIFT SUMMARY PT REMAINS ALERT AND ORIENTED, COOPERATIVE WITH CARE. MEDICATED WITH ROXICODONE 5MG PO FOR C/O LLL 6 PAIN WITH GOOD RELIEF. LEFT BKA SITE WITH CONTINUED BLEEDING- DRSG REINFORCED. TRANSFUSED 1 UNIT PRBC FOR HgB 6.9. HgB STILL 6.9 AFTER TRANSFUSION- PLAN IS TO TRANSFUSE ANOTHER UNIT WHEN AVAILABLE. MONITOR SHOWS NSR, RATE 70s-90s WITH FREQUENT PVCs. BP STABLE. O2 NOW AT 2L. PT HAS OCCASIONAL PERIODS OF SLEEP APNEA. RESPIRATIONS EVEN AND UNLABORED AT REST. WILL REPORT TO ONCOMING RN WHEN AVAILABLE.
--- NOTE | 2025-07-30 06:43 | NUR ---
CALL TO DR. YANI LOMELI NOTIFIED OF BLEEDING AND NEED FOR TRANSFUSION OF PRBC. WILL KEEP PT NPO IN CASE HE NEEDS TO GO BACK TO SURGERY.
[2025-07-30] MEDS ORDERED: Potassium Chl 20MEQ/Water100ML 100 ML IV STA (07:27)
--- NOTE | 2025-07-30 08:01 | NUR ---
AM NOTE... ASSUMED CARE OF PT AT 0700, PT IS A&Ox4 PLEASENT AND COOPERATIVE WITH CARE. PT IS IN SR W/OCC PVCs IN THE 70'S-80'S BP IS SOFT WITH SBPs IN THE 90'S BUT MAPS ARE>65. L/S CLEAR T/O DIM IN THE BASES, 2L NC WHILE SLEEPING D/T ZARINA. PT REFUSES CPAP. BT PRESENT AND HYPOACTIVE, ABD SOFT AND NONTENDER TO PALPATION. THE PT'S LEFT BKA STUMP HAS HEAVY BLEEDING/OOZING NOTED FROM THE SITE. PT CURRENTLY DENEIS PAIN. PT IS NPO FOR POSSIBLE RETURN TO THE OR.
--- NOTE | 2025-07-30 08:44 | NUR ---
PT UPDATE.... THE PT'S LINENS WERE CHANGED D/T SEVERE DIAPHORESIS AND BLEEDING, DURING THE LINEN CHANGE THIS RN AND RN VIJI NOTICED THE SMELL OF NECROTIC TISSUE WHICH BECAME STRONGER BY THE LEFT BKA STUMP. OR STAFF AT THE BEDSIDE, THEY STATED THEY WOULD GO BACK TO THE OR AND SPEAK WITH DR. HATCH.
[2025-07-30] MEDS ORDERED: Enoxaparin 40 MG/0.4 ML SYR SC SCH (09:00)
[2025-07-30] MEDS ORDERED: FLU VACC TS2025-26(6MOS UP)/PF 45 MCG/0.5 ML SYRINGE IM SCH (09:00)
[2025-07-30 10:50] LABS: Hematocrit 22.0 % (37.0-53.0); Hemoglobin 7.2 g/dL (13.5-17.5)
[2025-07-30 11:34] LABS: Prothrombin Time Results >90.0 Sec (9.7-11.5)
[2025-07-30] MEDS ORDERED: HYDROmorphone HCl/Pf 1MG SYR IV PRN (11:45)
[2025-07-30] MEDS ORDERED: Lidocaine 2% Jelly Uro-Jet UR ONE (16:05)
[2025-07-30 17:20] LABS: Mean Corpuscular HGB Conc 34.6 g/dL (31.5-36.5); Mean Corpuscular Volume 80 fL (80-100); NRBC ABSOLUTE 0.00 K/mm3 (0.00-0.02); NRBC Auto 0.0 /100 WBC (0.0-0.2); Platelet Count 403 K/mm3 (150-400); RDW Coefficient Variation 14.6 % (11.7-14.2); RDW Standard Deviation 42.8 fL (35.1-46.3)
[2025-07-30 17:24] LABS: Hematocrit 15.3 % (37.0-53.0); Hemoglobin 5.3 g/dL (13.5-17.5)
[2025-07-30 17:57] LABS: Prothrombin Time Results 49.1 Sec (9.7-11.5)
--- NOTE | 2025-07-30 18:06 | NUR ---
SHIFT SUMMARY: PT A&OX4, CALL LIGHT WITHIN REACH AND MAKES NEEDS KNOWN. PT ON 2L NC, SPO2 >94%. PT DENIES SOB. LUNG SOUNDS CLEAR T/O, DIMINISHED IN BASES. HR IN 70-80S, MAP 60-65, SBP IN 90S FOR MAJORITY OF SHIFT. PT HAS A PIV LFA AND R POWERGLIDE, BOTH FLUSH AND DRAW BACK. PT'S SKIN IS PALE T/O. PT IS BLE AMPUTEE, LLE AMPUTATION PERFORMED 07/29 D/T INFECTION. PT IS BLEEDING AT THE INCISION SITE, NEEDING TO CHANGE THE PADS UNDER THE LEG Q2 HOURS. LABS AT 1705 - HGB AT 5.3, HCT AT 15.3, AND INR AT 5.03. PT RECEIVED VIT K, TWO BAGS OF FROZEN PLASMA, 2 PRBCS EARLIER IN THE SHIFT, TWO MORE BAGS OF PRBC RX, CURRENTLY INFUSING BAG 3. PERFORMED BLADDER SCAN, PT RETAINING >600MLS, INSERTED ELIZABETH CATH. DIFFICULT TO CATHETERIZE D/T BPH. UROLOGIST CONSULTED FOR INSERTION. ELIZABETH CATH DRAINGING TO GRAVITY. PT HAS CALL LIGHT WITHIN REACH, WITH NO NEEDS EXPRESSED AT THIS TIME.
--- NOTE | 2025-07-30 20:19 | NUR ---
ASSUMPTION OF CARE: ASSUMED CARE OF PT AT ABOUT 1915. PT SITTING UP IN BED, AWAKE, A&O X4. PT APPEARS VERY PALE. HE IS ABLE TO MAKE NEEDS KNOWN AND PARTICIPATE IN CARE. AFEBRILE. PT REPORTS PAIN OF 5/10 TO LLE. PRN MEDS GIVEN Q2 FOR THIS, SEE EMAR. SBP STABLE, MAP >65. HR 70S, SINUS. DENIES CP. LUNGS CLEAR. DENIES SOB. PT ON 2L O2 VIA NC DUE TO SOME SLEEP APNEA THAT IS REPORTED BY BOTH PT AND DAY SHIFT RN. ABD SOFT, NONTENDER. BT HYPOACTIVE X4. PT DENIES N/V. ELIZABETH CATH IN PLACE, PATENT, DRAINING TO GRAVITY. LLE DRESSINGS VISUALLY SATURATED W/ SANGUINOUS EXUDATE. ABDS AND CHUX BEING USED TO CONTAIN FLOW. PT RECEIVING 1 UNIT BLOOD UPON ASSUMPTION OF CARE AND WILL RECEIVING ADDITIONAL UNIT AFTER. PT DENIES ANY CONCERNS OR ADDITIONAL NEEDS AT THIS TIME. CARE CONTINUES.
--- NOTE | 2025-07-30 21:45 | NUR ---
NEW RN ASSUMING CARE: NO CHANGES T/O TIME IN CARE OF THIS RN. REPORT GIVEN TO URSULA LEMA WHO WILL ASSUME CARE OF PT AT THIS TIME.
[2025-07-31] VITALS (85 sets, daily range): BP systolic 93–170; BP diastolic 47–87
[2025-07-31 03:47] LABS: Hematocrit 18.0 % (37.0-53.0); Hemoglobin 6.2 g/dL (13.5-17.5); Mean Corpuscular HGB Conc 34.4 g/dL (31.5-36.5); NRBC ABSOLUTE 0.03 K/mm3 (0.00-0.02); NRBC Auto 0.3 /100 WBC (0.0-0.2); Platelet Count 355 K/mm3 (150-400); RDW Coefficient Variation 14.8 % (11.7-14.2); RDW Standard Deviation 45.9 fL (35.1-46.3)
[2025-07-31 03:58] LABS: Mean Corpuscular Volume 85 fL (80-100)
[2025-07-31 04:10] LABS: Albumin, Blood 1.3 g/dL (3.4-5.0); Anion Gap 9 mmol/L (3-11); Blood Urea Nitrogen 37 mg/dL (8-24); CO2, Blood 24 mmol/L (21-32); Calcium, Blood 7.0 mg/dL (8.5-10.1); Chloride, Blood 104 mmol/L (98-108); Creatinine, Blood 3.15 mg/dL (0.60-1.20); Glucose, Blood 172 mg/dL (70-99); Magnesium, Blood 1.9 mg/dL (1.6-2.4); Phosphorus, Blood 5.9 mg/dL (2.5-4.9); Potassium, Blood 3.2 mmol/L (3.5-5.5); Sodium, Blood 134 mmol/L (136-145)
[2025-07-31 05:45] LABS: Prothrombin Time Results 34.4 Sec (9.7-11.5)
--- NOTE | 2025-07-31 06:12 | NUR ---
SHIFT SUMMARY: NO SIGNIFICANT OVERNIGHT EVENTS OCCURRED. PT IS STILL REQUIRING CHUX CHANGES HE IS SOAKING THROUGH DRESSINGS BUT BLEEDING SEEMS TO HAVE SLOWED. PT HAS PAIN TO LEG BUT IT IS CONTROLLED WITH MEDICATION. PT OCCASIONALLY COMPLAINS OF NAUSEA WITH A LOT OF MOVEMENT. HE IS MOVING WELL ON HIS OWN DESPITE DISCOMFORT. HE HAS BEEN PLEASANT AND IN GOOD SPIRITS. HE IS NO LONGER REQUIRING OXYGEN AND SPO2 >96% ON ROOM AIR. PTS BLOOD PRESSURE IS STABLE. URINE OUTPUT HAS DECREASED TONIGHT.
[2025-07-31] MEDS ORDERED: Potassium Chl 20MEQ/Water100ML 100 ML IV ONE ×2 (06:20→13:55)
--- NOTE | 2025-07-31 08:06 | NUR ---
AM NOTE... ASSUMED CARE OF PT AT 0800, PT IS A&Ox4 PLEASENT AND COOPERATIVE WITH CARE. PT IS IN SR W/OCC BIGEMINY/TRIGEMINY PVCs. BP IS STABLE WITH MAPS>65 SBPs 100'S-120'S. NO SWELLING OR EDEMA NOTED ON THIS ASSESSMENT. PT IS ON RA WITH O2 SATS>95% L/S CLEAR T/O ALL LOBES DIM IN THE BILATERAL LOWER LOBES. BT ARE PRESENT AND HYPOACTIVE, ABD SOFT AND NONTENDER TO PALPATION. PT IS C/O OF NAUSEA THIS MORNING, PT MEDICATED PER EMAR WITH ZOFRA WITH GOOD RESULTS. PT WAS MEDICATED FOR 6/10 PAIN TO THE LLE STUMP WITH GOOD RESULTS. BLEEDING FROM THE LLE STUMP HAS DECREASED FROM A HEAVY OOZE YESTERDAY TO A SMALL OOZE THIS MORNING. PT HAS BEEN NPO SINCE MIDNIGHT WITH PLANS TO GO BACK TO THE OR TODAY. 1 UNIT OF PRBCs STARTED PER ORDERS FOR A HBG OF 6.2.
[2025-07-31 11:20] LABS: Hematocrit 20.3 % (37.0-53.0); Hemoglobin 7.0 g/dL (13.5-17.5)
[2025-07-31 13:34] LABS: Prothrombin Time Results 20.5 Sec (9.7-11.5)
--- NOTE | 2025-07-31 14:36 | NUR ---
PT TO O.R. PT TO OR AT [address] HATCH FOR REVISION OF THE LEFT BKA. PT'S VS STABLE.
[2025-07-31] MEDS ORDERED: FentaNYL Citrate 50 MCG/ML 2 ML Injection ONE (14:44)
[2025-07-31] MEDS ORDERED: Ondansetron HCl 2 MG / ML 2ML Vial ONE (15:10)
[2025-07-31] MEDS ORDERED: Dexamethasone Sod Phos 10 MG/ML 1ML VIAL ONE (15:10)
--- NOTE | 2025-07-31 15:39 | NUR ---
07/31/25 1539 Daily Mckenzie ONE UNIT OF BLOOD STARTED IN THE OR BY UZAIR RICHARDSON. SEE ANESTHESIA RECORD FOR VITALS. PATIENT INFORMATION AND BLOOD CHECKED BY UZAIR RICHARDSON AND THIS RN.
[2025-07-31] MEDS ORDERED: Sugammadex Sodium 200 MG/2ML SDV (100 MG/ML) ONE (15:45)
[2025-07-31] MEDS ORDERED: HYDROmorphone HCl/Pf 1MG SYR IV ONE ×3 (16:30→17:00)
[2025-07-31] MEDS ORDERED: Insulin Regular 100 UNIT/ML 10ML Vial SC SCH (17:00)
[2025-07-31 17:04] LABS: Vancomycin, Trough 27.3 ug/mL (5.0-10.0)
--- NOTE | 2025-07-31 17:54 | NUR ---
SHIFT SUMMARY.... PT WENT TO THE OR AT 1430, PT'S VS STABLE. PT WAS GIVEN 1 UNIT OF PRBCs IN THE OR AND A SECOND UNIT WAS STARTED ONCE HE WAS BACK IN THE ROOM AT 1555 FOR A TOTAL OF 7 UNITS. LBKA STUMP DRESSING IS C/D/I. PT WAS AWAKE AND ALERT WHEN HE RETURNED TO THE ROOM. PT'S PAIN WAS 10/10 SHORTLY AFTER ARRIVAL BACK TO THE ROOM. PT WAS GIVEN PAIN MEDICATION PER EMAR WITH MINIMAL RESULTS, ICE APPLIED TO THE LLE. DILAUDID LOG HANDLER ORDERED. PT'S VS STABLE T/O THIS SHIFT. PT'S ELIZABETH IS PATENT AND DRAINING TO GRAVITY. PT'S AND SON AT THE BEDSIDE.
[2025-07-31] MEDS ORDERED: HYDROmorphone 1 MG/ML 30 ML Bag IV PRN (18:00)
--- NOTE | 2025-07-31 18:05 | NUR ---
PT WITH UNCONTROLLED PAIN S/P BKA CLOSURE TODAY. GABAPENTIN NOT EFFECTIVE AND PAIN INCREASING. NOTIFIED DR GARCIA. TELEPHONE ORDER RECIEVED FOR INVENTORY CONTROL SPECIALIST DILAUDID. ORDER PLACED.
[2025-08-01] VITALS (36 sets, daily range): BP systolic 113–173; BP diastolic 60–86
[2025-08-01 05:26] LABS: Hematocrit 22.7 % (37.0-53.0); Hemoglobin 8.2 g/dL (13.5-17.5); Mean Corpuscular HGB Conc 36.1 g/dL (31.5-36.5); Mean Corpuscular Volume 84 fL (80-100); NRBC ABSOLUTE 0.05 K/mm3 (0.00-0.02); NRBC Auto 0.5 /100 WBC (0.0-0.2); Platelet Count 344 K/mm3 (150-400); RDW Coefficient Variation 14.6 % (11.7-14.2); RDW Standard Deviation 44.3 fL (35.1-46.3)
--- NOTE | 2025-08-01 05:49 | NUR ---
END OF PRICING ANALYST SUMMARY: PATIENT ALERT AND ORIENT X4. REPORTS CONSISTENT PAIN TO SURGICAL SITE TO LLE. POSTOP LEFT BKA. STARTED DILAUDID SPECIFICATION MANAGER PUMP THIS SHIFT (SEE SETTINGS IN MAR) AND PATIENT REPORTS PAIN IS ADEQUATELY MANAGED WITH PUMP INFUSING. SURGICAL SITE TO LLE WITH DRESSING INTACT. NO DRAINAGE NOTED THIS SHIFT. PULSES PRESENT PROXIMAL TO SURGICAL SITE. CONTINUES ON BEDREST WITH Q2 TURN SCHEDULE. PATIENT ASSISTS WITH ALL TURNS IN BED. 1ST DEGREE HEART BLOCK NOTED WITH HR 84. WARFARIN RESTARTED THIS SHIFT PER PHARMACY. PATIENT REPORTS OUT OF HOSPITAL INR GOAL IS 2.5-3.5 AND CONFIRMS TAKING WARFARIN 4 MG PO IN THE EVENING DAILY. 1L NC WITH ETCO2 IN PLACE WHILE ON SPECIFICATION MANAGER PUMP. CONTINUES ON CONSISTENT CARB DIET. ELIZABETH TO GRAVITY AND DRAINING. ELIZABETH TO REMAIN IN PLACE X10-14 DAYS R/T RETENTION PER UROLOGY (-2024 WITH ELIZABETH BEING PLACED ON 07/30/25). AWAITING LABS THIS AM AT THIS TIME. PATIENT WELL PATIENT FAMILY STATES THEY PREFER PATIENT TO GO TO [facility] FOLLOWING DISCHARGE. PATIENT VERBALLY AGREES WITH CURRENT PLAN OF CARE AT THIS TIME AND EXPRESSES RELIEF THAT PAIN IS ADEQUATELY MANAGED PATIENT STATES, "I HAVN'T FELT PAIN LIKE THAT IN A VERY LONG TIME, I WAS WORRIED THAT I WILL BE IN PAIN AND WON'T BE ABLE TO GET ANY SLEEP". PATIE ABLE TO REST THIS SHIFT WITH NO S/S OF DISTRESS OR DISCOMFORT.
[2025-08-01 05:52] LABS: BAND PERCENT MAN 2 % (0-8); BASOPHILS ABSOLUTE MAN 0.10 K/mm3 (0.00-0.23); BASOPHILS PERCENT MAN 1 % (0-2); EOSINOPHILS ABSOLUTE MAN 0.00 K/mm3 (0.00-0.68); EOSINOPHILS PERCENT MAN 0 % (0-6); LYMPHOCYTES ABSOLUTE MAN 0.65 K/mm3 (0.84-5.20); LYMPHOCYTES PERCENT MAN 6 % (21-46); METAMYELOCYTE ABSOLUTE MAN 0.32 K/mm3 (0.00-0.00); METAMYELOCYTE PERCENT MAN 3 % (0-0); MONOCYTES ABSOLUTE MAN 0.43 K/mm3 (0.16-1.47); MONOCYTES PERCENT MAN 4 % (4-13); MYELOCYTE ABSOLUTE MAN 0.10 K/mm3 (0.00-0.00); MYELOCYTE PERCENT MAN 1 % (0-0); NEUTROPHILS ABSOLUTE MAN 9.31 K/mm3 (1.96-9.15); SEG NEUTROPHILS PERCENT MAN 83 % (41-73)
[2025-08-01 05:53] LABS: Anion Gap 12 mmol/L (3-11); Blood Urea Nitrogen 40 mg/dL (8-24); CO2, Blood 21 mmol/L (21-32); Calcium, Blood 7.4 mg/dL (8.5-10.1); Chloride, Blood 106 mmol/L (98-108); Creatinine, Blood 2.88 mg/dL (0.60-1.20); Glucose, Blood 215 mg/dL (70-99); Potassium, Blood 3.9 mmol/L (3.5-5.5); Sodium, Blood 135 mmol/L (136-145); Vancomycin, Random 21.7 ug/mL
[2025-08-01 06:18] LABS: Prothrombin Time Results 15.6 Sec (9.7-11.5)
--- NOTE | 2025-08-01 17:06 | NUR ---
SHIFT SUMMARY PT WAS AWAKE AT BEDSIDE AT TIME OF BEDSIDE REPORT W/ NOC RN. PT A/OX4 AND ABLE TO MOVE ALL EXTREMITIES SPONTANEOUSLY. PT REPORTS PAIN 3/10 IN LLE, PAIN RELIEVED W/ MEDS PER MAR, REPOSITIONING, AND ICE THERAPY. PT CALLS APPROPRIATELY AND IS ABLE TO MAKE NEEDS KNOWN.[id number] DONE T/O SHIFT. PREVIOUS HEALED R BKA PRESENT. L BKA WRAPPED IN DRESSING FROM POST-OP AND ID C/D/IGina HATCH AT BEDSIDE IN THE AM TO VIEW INCISION SITE, SITE CLEAN AND W/O DISCHAGRE, EBONY IN PLACE W/ SKIN FULLY APPROXIMATED. PHOTOS TAKEN AND PLACED IN CHART. DRESSING REPLACED W/ XEROFORM, ABD PADS, GAUZE, AND YESSY WRAP. LUNG SOUNDS CLEAR/DIM AT BASES, SATURATING >95% ON RA. BREATHS EVEN AND UNLABORED. NSR W/ FIRST DEGREE HB ON MONITOR, CLICK HEARD W/ AUSCULTATION. CAP REFILL <3 SEC AND NO NOTED EDEMA. PT TOLERATED CC DIET T/O DAY W/O DIFFICULTY. ELIZABETH CATHETER IN PLACE AND DRAINING TO GRAVITY. ELIZABETH PLACED BY UROLOGY AND TO STAY IN PLACE UNTIL 08/09-08/12 PER OUTPATIENT INSTRUCTIONS. ACCESS: JOSE ELIAS PG, LAC PIV GTTS: DILAUDID DOCUMENTATION NURSE CONTINUOUS 0.3MG PER HOUR
--- NOTE | 2025-08-01 18:26 | NUR ---
TRANSFER PT TRANSFERRED TO MEDICAL FLOOR VIA BED W/ ALL BELONGINGS. CHART AND LICENSED MASSAGE THERAPIST HANDOFF DONE W/ DELILAH.
--- NOTE | 2025-08-01 21:12 | NUR ---
HOSPITALIST NOTIFICATION NOTE: PATIENT YELLING OUT, STATED "I NEED MY TRAZADONE NOW, I NEED IT NOW IT WILL GET BAD IF YOU DONT GIVE MY FUCKING TRAZADONE." THIS RN EXPLAIN TO PATIENT I NEED TO CALL THE DOCTOR TO RESTART HIS TRAZADONE DOSE D/T NOT ORDER HERE. PATIENT CONTINUES TO YELL OUT AND WOULD NOT LISTEN. SEED CONE PICKER, ANGELICA CAME OVER TO ROOM AND EXPLAIN TO PATIENT. NOTIFIED DR. MARSHALL, RECEIVE ORDER TO RESTART HIS 50 MG TRAZADONE PO NOW.
--- NOTE | 2025-08-01 22:00 | NUR ---
MD NOTIFICATION NOTE: PATIENT CONTINUES TO REPORTS PAIN IS NOT CONTROLLED c CURRENT PAIN MEDICATION; DILAUDID ASSISTANT THERAPY AIDE AND OXYCODONE PO Q4. NOTIFIED DR. MARSHALL c THIS CONCERN. PER DR. MARSHALL HE WILL REVIEW PATIENT CHART AND MAKE A DECISION.
[2025-08-01] MEDS ORDERED: HYDROmorphone HCl/Pf 1MG SYR IV ONE (23:00)
--- NOTE | 2025-08-02 00:02 | NUR ---
PAIN REASSESSMENT NOTE: PATIENT MEDICATED c OT DOSE IV DILAUDID 0.5 MG FOR PAIN 8/10 TO L STUMP. REASSESS AT 2232-PATIENT REPORTS PAIN 6/10 AND ASKING IF HE CAN GET ANOTHER PAIN MEDICATION BESIDE THE DILAUDID PROGRAM WRITER. ICE PACK IN PLACE TO L STUMP. AT 2332 PATIENT MEDICATED c 5 MG PO OXYCODONE AND 650 MG PO TYLENOL. REASSESS AT 0001-PATIENT REPORTS PAIN DOWN TO 5/10, STATED " I FEEL A LITTLE BIT BETTER AND I DON'T LIKE BEING IN THE HOSPITAL." PATIENT SON AND SPOUSE AT BEDSIDE. [facility] T/O SHIFT. CALL LIGHT IN REACH.
[2025-08-02 00:20] VITALS: BP 110/54
[2025-08-02 04:39] VITALS: BP 106/63
[2025-08-02 05:07] LABS: Hematocrit 21.8 % (37.0-53.0); Hemoglobin 7.4 g/dL (13.5-17.5); Mean Corpuscular HGB Conc 33.9 g/dL (31.5-36.5); NRBC ABSOLUTE 0.11 K/mm3 (0.00-0.02); NRBC Auto 1.2 /100 WBC (0.0-0.2); Platelet Count 342 K/mm3 (150-400); RDW Coefficient Variation 14.9 % (11.7-14.2); RDW Standard Deviation 47.5 fL (35.1-46.3)
[2025-08-02 05:22] LABS: Mean Corpuscular Volume 89 fL (80-100)
[2025-08-02 05:23] LABS: Prothrombin Time Results 27.5 Sec (9.7-11.5)
--- NOTE | 2025-08-02 05:49 | NUR ---
SHIFT SUMMARY: PATIENT REPORTS AFTER HE RECEIVED HE'S EXTRA DOSE OF PAIN MEDICATION PER ORDER HIS PAIN HAS BEEN CONTROLLED. PATIENT HAD COUPLE EPISODE O2 DROPPED DOWN TO HIGH 70'S, RESPIRATION RANGES 7-10 BREATHS/MIN. PATIENT PLACED ON 1L NC, SATTING 89-98%, ON PASSENGER BRAKEMAN. PATIENT ON TELE, SR IN 70'S BPM. L STUMP DRESSING C/D/I. ELIZABETH PLACED BY UROLOGY FOR RETENTION, PATENT DRAINING YELLOW URINE TO GRAVITY. VITAL SIGNS REVIEWED. BED ALARM ON FOR SAFETY. CALL LIGHT IN REACH.
[2025-08-02 06:05] LABS: Albumin, Blood 1.5 g/dL (3.4-5.0); Anion Gap 8 mmol/L (3-11); Blood Urea Nitrogen 32 mg/dL (8-24); CO2, Blood 26 mmol/L (21-32); Calcium, Blood 7.4 mg/dL (8.5-10.1); Chloride, Blood 108 mmol/L (98-108); Creatinine, Blood 2.00 mg/dL (0.60-1.20); Glucose, Blood 179 mg/dL (70-99); Magnesium, Blood 1.9 mg/dL (1.6-2.4); Phosphorus, Blood 4.3 mg/dL (2.5-4.9); Potassium, Blood 3.7 mmol/L (3.5-5.5); Sodium, Blood 138 mmol/L (136-145)
[2025-08-02 07:41] VITALS: BP 114/68
[2025-08-02] MEDS ORDERED: Insulin Glargine 100 Unit/ML 3 ML SYR SC SCH (10:34)
[2025-08-02] MEDS ORDERED: Insulin Glargine-Yfgn 100 Unit/mL 3 ML SYR SC SCH (11:00)
[2025-08-02 11:17] VITALS: BP 105/56
[2025-08-02] MEDS ORDERED: Amylase/Lipase/Protease DR Cap 12,000 PO SCH (12:30)
[2025-08-02 15:37] VITALS: BP 148/86
[2025-08-02] MEDS ORDERED: HYDROmorphone HCl/Pf 1MG SYR IV ONE (15:45)
[2025-08-02 16:08] LABS: Hematocrit 25.4 % (37.0-53.0); Hemoglobin 8.4 g/dL (13.5-17.5); Mean Corpuscular HGB Conc 33.1 g/dL (31.5-36.5); Mean Corpuscular Volume 89 fL (80-100); NRBC ABSOLUTE 0.05 K/mm3 (0.00-0.02); NRBC Auto 0.5 /100 WBC (0.0-0.2); Platelet Count 402 K/mm3 (150-400); RDW Coefficient Variation 15.3 % (11.7-14.2); RDW Standard Deviation 48.9 fL (35.1-46.3)
--- NOTE | 2025-08-02 16:15 | NUR ---
SHIFT SUMMARY PT AOX4, COOPERATIVE, ABLE TO MAKE NEEDS KNOWN. PT IS BED REST CURRENLTY DUE TO RECENT L BKA PROCEDURE. WOUND CARE HAS NOT BEEN PERFORMED THIS SHIFT YET. PT DID HAVE REASONABLE PAIN CONTROL MOST OF SHIFT, UNTIL APPROX 1600. ONE TIME ORDER DILAUDID ORDERED PER MD. EQUIPMENT SUPERINTENDENT HAS BEEN OFF MOST OF SHIFT WITH MINIMUM CONPLAINTS OF PAIN. ELIZABETH INTACT AND DRAINING TO GRAVITY, DC ELIZABETH APPROX 08/09 OR 08/12. TOLERATING MEDICATIONS. ROOM AIR. TELE. BED IN LOWEST POSITION, CALL LIGHT WITHIN REACH..
[2025-08-02] MEDS ORDERED: HYDROmorphone 1 MG/ML 30 ML Bag IV PRN (18:50)
[2025-08-02 19:44] VITALS: BP 113/58
--- NOTE | 2025-08-02 19:51 | NUR ---
NOTIFICATION NOTE: PATIENT SON AND SPOUSE IN ROOM VISITING. SPOUSE REPORTS PATIENT HAD AMPUTATION DONE TO HIS R LEG BACK IN SEPTEMBER OF LAST YEAR, BUT HAD NOT COMPLAIN A LOT OF PAIN BACK THEN, NOW WITH HIS L LEG AMPUATION SEEMS TO HAVE MORE PAIN. SPOUSE IS REQUESTING AN XRAY AND WOULD LIKE TO TALK TO A DOCTOR. SPOUSE STATED, "WE HAVE NOT TALK TO A DOCTOR FOR AN UPDATE SINCE THE SURGERY." NOTIFIED DR. CHARMAINE hart SPOUSE REQUEST. PER DR. MARSHALL HE WILL COME OVER AND TALK TO THE FAMILY.
--- NOTE | 2025-08-02 20:15 | NUR ---
HOSPITALIST IN ROOM NOTE: DR. MARSHALL IN ROOM AT THIS TIME TALKING TO PATIENT FAMILY AT BEDSIDE REGARDING UPDATES AND PLAN OF CARE.
[2025-08-03] VITALS (7 sets, daily range): BP systolic 110–176; BP diastolic 60–82
[2025-08-03 05:23] LABS: Hematocrit 21.8 % (37.0-53.0); Hemoglobin 7.2 g/dL (13.5-17.5); Mean Corpuscular HGB Conc 33.0 g/dL (31.5-36.5); Mean Corpuscular Volume 91 fL (80-100); NRBC ABSOLUTE 0.03 K/mm3 (0.00-0.02); NRBC Auto 0.4 /100 WBC (0.0-0.2); Platelet Count 338 K/mm3 (150-400); RDW Coefficient Variation 15.8 % (11.7-14.2); RDW Standard Deviation 50.4 fL (35.1-46.3)
[2025-08-03 05:37] LABS: Albumin, Blood 1.5 g/dL (3.4-5.0); Anion Gap 8 mmol/L (3-11); Blood Urea Nitrogen 24 mg/dL (8-24); CO2, Blood 26 mmol/L (21-32); Calcium, Blood 7.9 mg/dL (8.5-10.1); Chloride, Blood 109 mmol/L (98-108); Creatinine, Blood 1.26 mg/dL (0.60-1.20); Glucose, Blood 126 mg/dL (70-99); Phosphorus, Blood 3.4 mg/dL (2.5-4.9); Potassium, Blood 3.6 mmol/L (3.5-5.5); Sodium, Blood 139 mmol/L (136-145)
[2025-08-03 05:44] LABS: Prothrombin Time Results 48.2 Sec (9.7-11.5)
--- NOTE | 2025-08-03 06:14 | NUR ---
SHIFT SUMMARY: PATIENT A/OX4, PLEASANT AND COOPERATIVE c CARE. PATIENT ON DILAUDID CHIP MUCKER FOR PAIN MANAGEMENT. PATIENT REPORTS PAIN IS WELL CONTROLLED "I BARELY HAVE PAIN." PATIENT SLEPT WELL, MAINTAIN RESPIRATION 7-13 BREATHS/MIN c O2 ON-1L NC SATTING 90-96%, ON VARNISHING UNIT TOOL SETTER AND CO2 SENSOR. PATIENT L BKA-STUMP EBONY INTACT, NO REDNESS OR DRAINAIGE AROUND SITE, DRESSING CHANGED PER ORDER. PATIENT HAS ELIZABETH, PLACED BY UROLOGY FOR RETENTION AND NEEDS TO STAY IN 08/09- PER ORDER: ELIZABETH PATENT DRAINING YELLOW URINE TO GRAVITY. VITAL SIGNS REVIEWED. PATIENT HAS HAD NO COMPLAINTS OR DENIES NEW CONCERN THIS SHIFT. BED IN LOWEST POSITION. CALL LIGHT IN REACH.
--- NOTE | 2025-08-03 06:21 | NUR ---
CRITICAL LAB VALUE NOTE: RECEIVED A CALL FROM [email or web address] TO NOTIFY PATIENT LAB CRITICAL INR 4.93. NOTIFIED DR. NAPIER, RECEIVED ORDER TO HOLD COUMADIN DOSE TODAY. CALLED PHARMACIST AND SPOKE TO STEVEN.
--- NOTE | 2025-08-03 07:31 | NUR ---
RECEIVED REPORT FROM NIGHT NURSE. ASSUMING CARE OF PATIENT AT THIS TIME. PATIENT AWAKE RESTING IN BED, DENIES NEEDS AT THIS MOMENT.
[2025-08-03] MEDS ORDERED: HYDROmorphone HCl/Pf 1MG SYR IV PRN (09:40)
[2025-08-03 11:16] LABS: Ferritin, Serum 292.0 ng/mL (26-388); Total Iron Binding Capacity 190.0 ug/dL (250-450)
[2025-08-03] MEDS ORDERED: Iron Dextran 50 MG / ML 2ML Vial IV ONE (17:00)
[2025-08-03] MEDS ORDERED: Iron Dextran 975 MG in NS 250 ML IV ONE (18:00)
--- NOTE | 2025-08-03 18:44 | NUR ---
END OF SHIFT NOTE PATIENT IND IN BED TODAY, MIN ASSIST WITH OTHER NEEDS. ELIZABETH IN PLACE FOR UP TO 1-2 WEEKS FOR RETENTION. IN AT BEDSIDE TODAY AND DISCUSSED PLAN WITH DOCTOR THIS MORNING. OUTPATIENT DIETITIAN D/C'D. PATIENT DENIES NEEDS AT THIS TIME
[2025-08-04] VITALS (12 sets, daily range): BP systolic 148–215; BP diastolic 70–92
--- NOTE | 2025-08-04 04:39 | NUR ---
SHIFT SUMMARY A&OX4. ABLE TO MAKE NEEDS KNOWN. ELIZABETH PATENT AND DRAINING LIGHT YELLOW URINE TO GRAVITY. LEFT BKA WOUND DRESSING CHANGED. MINIMAL DRAINAGE NOTED. NEW DRESSING APPLIED PER ORDERS. PT IS TOLERATING ORAL PAIN MEDICATION WELL AND CALLS APPROPRIATELY. PT CURRENTLY IN BED AT LOWEST POSITION WITH CALL LIGHT WITHIN REACH.
[2025-08-04 06:22] LABS: Prothrombin Time Results 66.5 Sec (9.7-11.5)
--- NOTE | 2025-08-04 06:56 | NUR ---
CRITICAL INR OF 6.98 RECEIVED FROM HEMATOLOGY. HOSPITALIST CALLED AND RECEIVED TELEPHONE ORDERS TO GIVE 2 UNITS FSP THEN RECHECK INR 4 HOURS AFTER LAST INFUSION. WILL REPORT TO DAY SHIFT.
[2025-08-04 08:37] LABS: Hematocrit 26.7 % (37.0-53.0); Hemoglobin 8.8 g/dL (13.5-17.5); Mean Corpuscular HGB Conc 33.0 g/dL (31.5-36.5); Mean Corpuscular Volume 91 fL (80-100); NRBC ABSOLUTE 0.00 K/mm3 (0.00-0.02); NRBC Auto 0.0 /100 WBC (0.0-0.2); Platelet Count 436 K/mm3 (150-400); RDW Coefficient Variation 15.7 % (11.7-14.2); RDW Standard Deviation 51.3 fL (35.1-46.3)
[2025-08-04] MEDS ORDERED: HydrALAZINE HCl 20 MG / ML 1ML Vial IV PRN (11:00)
[2025-08-04] MEDS ORDERED: HydrALAZINE HCl 20 MG / ML 1ML Vial IV ONE (11:00)
--- NOTE | 2025-08-04 18:41 | NUR ---
END OF SHIFT NOTE PATIENT RESTING IN BED. HELD COUMADIN, DUE TO CRITICAL INR. FFP X2 GIVEN TODAY. DR MCCLELLAN IN TODAY TO ASSESS. FAMILY AT BEDSIDE THIS EVENING AND UPDATED ABOUT CARE T/O TODAY. PATIENT AND FAMILY DENIES QUESTIONS OR CONCERNS AT THIS TIME.
[2025-08-04 19:21] LABS: Prothrombin Time Results 22.6 Sec (9.7-11.5)
[2025-08-05] VITALS (7 sets, daily range): BP systolic 99–214; BP diastolic 55–89
[2025-08-05 05:36] LABS: Hematocrit 28.7 % (37.0-53.0); Hemoglobin 9.7 g/dL (13.5-17.5); Mean Corpuscular HGB Conc 33.8 g/dL (31.5-36.5); Mean Corpuscular Volume 88 fL (80-100); NRBC ABSOLUTE 0.00 K/mm3 (0.00-0.02); NRBC Auto 0.0 /100 WBC (0.0-0.2); Platelet Count 472 K/mm3 (150-400); RDW Coefficient Variation 15.3 % (11.7-14.2); RDW Standard Deviation 48.9 fL (35.1-46.3)
[2025-08-05 06:10] LABS: Prothrombin Time Results 18.0 Sec (9.7-11.5)
[2025-08-05 06:15] LABS: Anion Gap 8.0 mmol/L (3-11); Blood Urea Nitrogen 11.0 mg/dL (8-24); CO2, Blood 29.0 mmol/L (21-32); Calcium, Blood 8.4 mg/dL (8.5-10.1); Chloride, Blood 105.0 mmol/L (98-108); Creatinine, Blood 0.8 mg/dL (0.60-1.20); Glucose, Blood 202.0 mg/dL (70-99); Potassium, Blood 3.9 mmol/L (3.5-5.5); Sodium, Blood 138.0 mmol/L (136-145)
--- NOTE | 2025-08-05 06:32 | NUR ---
SHIFT SUMMARY A&OX4. ABLE TO MAKE NEEDS KNOWN. PAIN APPEARS TO BE WELL MANAGED WITH ORAL PAIN MEDS PER EMAR. PT HAD HYPERTENSIVE EPISODE. HE DENIED ANY S/S OF HYPERTENSION. HYDRALAZINE GIVEN PER EMAR. BP CAME DOWN SIGNIFICANTLY. CURRENTLY PT IS RESTING IN BED AT LOWEST POSITION WITH CALL LIGHT WITHIN REACH.
[2025-08-05 08:19] LABS: Anti-Xa UFH, PHA Monitoring <0.10 IU/mL
[2025-08-05] MEDS ORDERED: Heparin Sodium,Porcine/0.5 NS 500 ML IV SCH (08:40)
--- NOTE | 2025-08-05 11:17 | NUR ---
CASE CONFRENCE- DISCUSSED PATIENT WITH BSRN. SHE REPORTS THAT PATIENS PAIN HAS BEEN WELL MANAGED. HE WAS HAVING NAUSEA THIS MORNING, SHE HAD RECENTLY MEDICATED. HAD JUST ARRIVED TO VISIT. WILL ROUND THIS AFTERNOON TO FOLLOW UP ON SYMPTOMS AFTER PT WORKS WITH PATIENT
[2025-08-05] MEDS ORDERED: Dose Adjust by Pharmacy XX STA (18:12)
[2025-08-05] MEDS ORDERED: Heparin Sodium 5000 Units/ML 1ML MDV IV ONE (18:15)
--- NOTE | 2025-08-05 18:43 | NUR ---
END OF SHIFT NOTE PATIENT SITITNG IN CHAIR, AT BEDSIDE. HEPARIN INFUSING AT ORDERED RATE, BOLUS GIVEN PER ORDER. DIETARY CONSULT ORDERED FOR EVAL FOR SOFT BITE SIZE FOODS, PATIENT DOES NOT HAVE TEETH. REQUESTED CHANGE AND HAS BROUGHT FOOD FOR PATIENT DAILY. PATIENT DENIES NEEDS AT THIS TIME.
--- NOTE | 2025-08-05 21:31 | NUR ---
ASSUMPTION OF CARE: THIS RN ASSUMED CARE OF PATIENT. AWAKE DURING SHIFT CHANGE REPORT. SITTING UP IN RECLINER. @ BEDSIDE. BREATHING EVEN AND UNLABORED c ROOM AIR. ELIZABETH PATENT AND DRAINING LIGHT YELLOW URINE TO GRAVITY. STATES NEEDS TO HAVE BM; WOULD LIKE TO GET HIM ONTO [facility] c [facility]. PT HASN'T WORKED c PT YET FOR TRANSFERS TO [facility]; DECIDED TO USE BEDPAN THROUGH SHARED DECISION MAKING. MOST RECENT TELE STRIP IN CHART INTERPRETED SINUS c FHB @ 89bpm. BED IN LOWEST POSITION. CALL LIGHT WITHIN REACH. ACUTE NEEDS MET.
[2025-08-06] VITALS: BP 119/63
[2025-08-06] MEDS ORDERED: Dose Adjust by Pharmacy XX STA ×2 (01:35→07:47)
[2025-08-06 04:22] VITALS: BP 159/88
[2025-08-06 05:04] LABS: BASOPHILS ABSOLUTE AUTO 0.04 K/mm3 (0.00-0.23); BASOPHILS PERCENT AUTO 1 % (0-2); EOSINOPHILS ABSOLUTE AUTO 0.17 K/mm3 (0.00-0.68); EOSINOPHILS PERCENT AUTO 2 % (0-6); Hematocrit 25.8 % (37.0-53.0); Hemoglobin 8.5 g/dL (13.5-17.5); IMMATURE GRAN ABSOLUTE AUTO 0.08 K/mm3 (0.00-0.10); IMMATURE GRAN PERCENT AUTO 1 % (0-1); LYMPHOCYTES ABSOLUTE AUTO 1.59 K/mm3 (0.84-5.20); LYMPHOCYTES PERCENT AUTO 19 % (21-46); MONOCYTES ABSOLUTE AUTO 0.48 K/mm3 (0.16-1.47); MONOCYTES PERCENT AUTO 6 % (4-13); Mean Corpuscular HGB Conc 32.9 g/dL (31.5-36.5); Mean Corpuscular Volume 89 fL (80-100); NEUTROPHILS ABSOLUTE AUTO 5.97 K/mm3 (1.96-9.15); NEUTROPHILS PERCENT AUTO 72 % (41-73); NRBC ABSOLUTE 0.00 K/mm3 (0.00-0.02); NRBC Auto 0.0 /100 WBC (0.0-0.2); Platelet Count 395 K/mm3 (150-400); RDW Coefficient Variation 15.2 % (11.7-14.2); RDW Standard Deviation 48.1 fL (35.1-46.3)
[2025-08-06 05:15] LABS: Prothrombin Time Results 14.4 Sec (9.7-11.5)
--- NOTE | 2025-08-06 05:58 | NUR ---
END OF SHIFT SUMMARY: A&Ox4. PLEASANT AND COOPERATIVE WITH CARE. CALLS APPROPRIATELY AND IS ABLE TO ADVOCATE NEEDS EFFECTIVELY. VSS. TELE STRIP IN CHART REVIEWED AND INTERPRETED SINUS RHYTHM c AVB @ 89bpm. BREATHING EVEN AND UNLABORED c RA. MAINTAINING SPO2 >92% WHILE SLEEPING PER CONTINUOUS PULSE OX. CONTINENT OF BOWEL; LBM 08/05/25 USING BEDPAN. WANTS TO WORK WITH PT TO BE ABLE TO TRANSFER TO [facility]. TOLERATING DIET, THOUGH IS NOT COMPLIANT c ORDERED DIET. ELIZABETH PATENT AND DRAINING LIGHT YELLOW URINE TO GRAVITY. POWERGLIDE MAHNAZ PATENT c HEPARIN GTTs. DOES NOT DRAW. MEDS WHOLE c FLUIDS. NO NEW OVERNIGHT EVENTS. BED IN LOWEST POSITION, CALL LIGHT WITHIN REACH, ALL NEEDS MET. REPORT TO ONCOMING NURSE.
[2025-08-06 07:32] VITALS: BP 104/64
[2025-08-06] MEDS ORDERED: Heparin Sodium 5000 Units/ML 1ML MDV IV ONE (07:50)
[2025-08-06] MEDS ORDERED: ZINC OXIDE/PETROLATUM, YELLOW 1 APPLIC/71 GM PASTE TOP PRN (10:45)
[2025-08-06 11:54] VITALS: BP 134/80
[2025-08-06 16:40] VITALS: BP 105/60
--- NOTE | 2025-08-06 16:43 | NUR ---
SHIFT SUMMARY: PATIENT IS A&OX4/MIN ASSIST, CALLS APPROPRIATELY, AND IS CONTINENT/INCONTINENT OF BOWEL; ELIZABETH IN PLACE. HE WORKED WITH PT TODAY, HE CONTINUES TO RECEIVE IV HEPARIN AND IS BRIDGING WITH WARFARIN; PATIENT IS YET THERAPUTIC THEREFORE DR. MCCLELLAN WISHES FOR THE PATIENT TO BE 2.0-2.5 WITH HIS INR PRIOR TO DISCHARGE AND STILL WAITING TO HEARD FROM CASE MANAGEMENT HIS INSURANCE [facility] HAS APPROVED HIM GOING TO [facility]. MULTIPLE DISCUSSED VIA PHONE WITH THE TODAY ABOUT THE PLAN AND THAT DR. MCCLELLAN WAS ASKED TO CALL HER. SHE APPEARS UPSET AND EXPRESSED FRUSTRATION WITH THE PATIENT STILL BEING IN THE HOSPITAL AND STATES THAT EVERYTHING IS READY FOR HIM AT [facility] FOR SHE IS A NURSE THERE. SHE EXPRESSED WHY THE PATIENT CANNOT BE DISCHARGED WITH LOVENOX AND JUST BRIDGE THERE LIKE IN THE PAST. PER DR. MCCLELLAN HE HAS ATTEMPTED TO CALL THE PATIENT'S 3 TIMES WITH NO ANSWER. THIS WAS RELAYED TO THE PATIENT. PATIENT IS OKAY WITH STAYING AND IS NOT EXPRESSING FRUSTRATION. HE IS PLEASANT AND COOPERATIVE WITH CARE, CALL LIGHT WITHIN REACH, TELE D/C'D, NO SIGNS OR SYMPTOMS OF DISTRESS, PLAN OF CARE ONGOING. POSSIBLE D/C 08/07/25; PENDING [facility] AUTH AND INR.
[2025-08-06 20:00] VITALS: BP 114/65
[2025-08-07 00:11] VITALS: BP 132/71
[2025-08-07] MEDS ORDERED: Heparin Sodium 5000 Units/ML 1ML MDV IV ONE (00:50)
[2025-08-07] MEDS ORDERED: Dose Adjust by Pharmacy XX STA ×3 (00:50→13:58)
[2025-08-07 04:54] LABS: Hematocrit 23.7 % (37.0-53.0); Hemoglobin 7.6 g/dL (13.5-17.5); Mean Corpuscular HGB Conc 32.1 g/dL (31.5-36.5); Mean Corpuscular Volume 91 fL (80-100); NRBC ABSOLUTE 0.00 K/mm3 (0.00-0.02); NRBC Auto 0.0 /100 WBC (0.0-0.2); Platelet Count 331 K/mm3 (150-400); RDW Coefficient Variation 15.4 % (11.7-14.2); RDW Standard Deviation 50.4 fL (35.1-46.3)
[2025-08-07 05:14] LABS: Prothrombin Time Results 17.9 Sec (9.7-11.5)
[2025-08-07 07:24] VITALS: BP 138/83
--- NOTE | 2025-08-07 16:39 | NUR ---
SHIFT SUMMARY: PLAN IS FOR PATIENT TO GO TO [facility] TOMORROW; WAS NOTIFIED BY [employer] THAT AUTHORIZATION RECEIVED FROM [facility] THIS AFTERNOON. PATIENT NOTIFIED. HE IS STILL ON THE HEPARIN DRIP AND BRIDGING WITH WARFARIN; STILL NO THERAPUTIC. PATIENT IN HIS ROOM, ALERT, CALL LIGHT WITHIN REACH, NO SIGNS OR SYMPTOMS OF DISTRESS, WOUND CARE PREFORMED OF [facility] SITE, PLAN OF CARE ONGOING.
--- NOTE | 2025-08-07 17:38 | NUR ---
PATIENT'S CALLING PATIENT MULTIPLE TIMES EXPRESSING FRUSTRATION AND ADAMANT ABOUT PATIENT BEING DISCHARGED REGARDLESS OF ACTIVE PLAN FOR THE PATIENT AND NO ACTIVE DISCHARGE ORDERS. STATES THAT SOMEONE FROM [facility] CALLED AND STATED THAT THE PATIENT WILL BE COMING OVER THIS EVENING; WAS TOLD THAT SOULEYMANE CALLED NUSRAT AT [facility] ADMITTING AND REPORTED THIS. THIS WAS NOT RELAYED TO PRIMARY RN OR PER THE MOST RECENT NOTES FROM CASE MANAGEMENT AND DR. MCCLELLAN. PATIENT'S AGRUMENTIVE WITH STAFF AND STATES THAT THE PATIENT IS NOW REFUSING TO BE ON HEPARIN AND THAT HE SHOULD'VE BEEN TAKEN OFF OF IT THIS MORNING. CONVERSTATIONS WITH THE PATIENT AND HIS SON HAVE BEEN PLEASANT AND THEY HAVE VOICED UNDERSTANDING OF THE PLAN AND AGREEABLE WITH IT. THE IS NOT. CALLED NURSING TELEPHONE SOLICITOR TO COMPLAIN AND THEN NURSING TELEPHONE SOLICITOR CALLED [employer] STONE FINISHER. PRIMARY RN DISCUSSED SITUATION WITH CONCRETE STONE FINISHER AND ASKED FOR CHARGE TO CONTACT DR. MCCLELLAN. ATTEMPTS TO CALL CASE MANAGEMENT, BUT NOT AVAILABLE. CONCRETE STONE FINISHER SPOKE WITH DR. MCCLELLAN EXPLAINED SITUATION AND PER DR. MCCLELLAN "WILL SEE WHAT HE CAN DO." PATIENT'S FAMILY WILLING TO TRANSPORT PATIENT TO [facility] AND PER PATIENT'S FACILITY IS READY FOR HIM. CONCRETE STONE FINISHER SPOKE WITH PATIENT AND HIS SON AND STATES THAT DR. MCCLELLAN WAS CONTACTED AND ATTEMPTING DISCHARGE FOR THIS EVENING. AWAITING ORDERS. PATIENT IS STILL RECEIVING IV HEPARIN AT THIS TIME AND WAS GIVEN WARFARIN.
[2025-08-07] MEDS ORDERED: DOCU100 PO (18:04)
[2025-08-07] MEDS ORDERED: CATAPRES0.1 MG PO (18:04)
[2025-08-07] MEDS ORDERED: HUMULIN R100 UNIT/2 (18:05)
[2025-08-07] MEDS ORDERED: CREON DR 12,001 EACH PO (18:05)
[2025-08-07] MEDS ORDERED: ENOX100I SC (18:05)
[2025-08-07] MEDS ORDERED: Critic-Aid142 GM TOP (18:06)
[2025-08-07] MEDS ORDERED: OXYC10ER PO (18:06)
--- NOTE | 2025-08-07 18:22 | NUR ---
DISCHARGE NOTE: PHYSICIAN GYNECOLOGIST WENT OVER DISCHARGE WITH THE PATIENT AND HIS SON. PATIENT'S LINES WERE REMOVED; FIRST DOSE OF LOVENOX GIVEN. PATIENT'S SON COLLECTING PATIENT BELONGINGS. CALLED AND GAVE REPORT TO NURSE AT [facility]. PATIENT WHEELED OUT BY SON.
[2025-08-07] MEDS ORDERED: Enoxaparin 100 MG/ML 1ML SYR SC SCH (19:00)
== END 2025-08-07 18:29 | DRG 853 ==
LOC: ER 13:07 → SURS 16:42 → MEDS 16:42 → ICUE 16:42 → SURS 18:20 → ICUE 22:45 → MEDS 08-01 17:54
PROVIDERS: Internal Medicine; Orthopaedic Surgery; Student in an Organized Health Care Education/Training Program; ADMIT Student in an Organized Health Care Education/Training Program
PROC: 3E03329 Introduction of Other Anti-infective into Peripheral Vein, Percutaneous Approach (ICD-10-PCS; 2025-07-29)
PROC: 0Y6J0Z2 Detachment at Left Lower Leg, Mid, Open Approach (ICD-10-PCS; principal; 2025-07-29 20:30)
PROC: 30233K1 Transfusion of Nonautologous Frozen Plasma into Peripheral Vein, Percutaneous Approach (ICD-10-PCS; 2025-07-30)
PROC: 30233N1 Transfusion of Nonautologous Red Blood Cells into Peripheral Vein, Percutaneous Approach (ICD-10-PCS; 2025-07-30)
PROC: 0T9B70Z Drainage of Bladder with Drainage Device, Via Natural or Artificial Opening (ICD-10-PCS; 2025-07-30)
PROC: 0Y6J0Z2 Detachment at Left Lower Leg, Mid, Open Approach (ICD-10-PCS; 2025-07-31)
DX: A41.9 Sepsis, unspecified organism (principal); M72.6 Necrotizing fasciitis; N17.0 Acute kidney failure with tubular necrosis; D62 Acute posthemorrhagic anemia; E11.52 Type 2 diabetes mellitus with diabetic peripheral angiopathy with gangrene; E87.1 Hypo-osmolality and hyponatremia; M00.9 Pyogenic arthritis, unspecified; M86.9 Osteomyelitis, unspecified; D68.32 Hemorrhagic disorder due to extrinsic circulating anticoagulants; L97.526 Non-pressure chronic ulcer of other part of left foot with bone involvement without evidence of necrosis; R65.20 Severe sepsis without septic shock; E11.22 Type 2 diabetes mellitus with diabetic chronic kidney disease; E11.69 Type 2 diabetes mellitus with other specified complication; I12.9 Hypertensive chronic kidney disease with stage 1 through stage 4 chronic kidney disease, or unspecified chronic kidney disease; I25.10 Atherosclerotic heart disease of native coronary artery without angina pectoris; E78.5 Hyperlipidemia, unspecified; E11.621 Type 2 diabetes mellitus with foot ulcer; E11.42 Type 2 diabetes mellitus with diabetic polyneuropathy; N18.9 Chronic kidney disease, unspecified; N40.1 Benign prostatic hyperplasia with lower urinary tract symptoms; R33.8 Other retention of urine; E11.65 Type 2 diabetes mellitus with hyperglycemia; E87.6 Hypokalemia; G47.33 Obstructive sleep apnea (adult) (pediatric); G54.6 Phantom limb syndrome with pain; T45.515A Adverse effect of anticoagulants, initial encounter; Z88.0 Allergy status to penicillin; Z86.73 Personal history of transient ischemic attack (TIA), and cerebral infarction without residual deficits; Z95.2 Presence of prosthetic heart valve; Z89.511 Acquired absence of right leg below knee; Z79.82 Long term (current) use of aspirin; Z79.4 Long term (current) use of insulin; Z79.01 Long term (current) use of anticoagulants; I25.2 Old myocardial infarction; Z89.422 Acquired absence of other left toe(s); Z89.412 Acquired absence of left great toe; Z87.891 Personal history of nicotine dependence; Z79.84 Long term (current) use of oral hypoglycemic drugs; Z95.1 Presence of aortocoronary bypass graft
CPT/HCPCS: 36415; 36430; 51703; 73701; 76770; 80048; 80053; 80069; 80202; 82330; 82728; 82947; 83540; 83550; 83605; 83735; 84132; 85014; 85018; 85025; 85027; 85520; 85610; 85651; 85730; 86140; 86850; 86900; 86901; 86923; 87040; 87070; 87075; 87076; 87077; 87147; 87185; 87186; 87205; 88307; 88311; 93005; 93010; 94760; 94762; 96365-59; 96367; 96375-59; 96376-59; 97110; 97162; 97530; 99285-25; A9270; C1751; J0330; J0360; J0692; J1100; J1171; J1644; J1650; J1750; J1815; J2185; J2250; J2405; J2704; J3010; J3373; J3480; J7030; J7040; J7050; P9016; P9059; Q9967

== ENCOUNTER 2025-09-09 09:19 | Inpatient (IN) | payer OTHER ==
[~2025-09-09] VITALS: Ht 167.6 cm; Wt 86.2 kg
[2025-09-09] VITALS (33 sets, daily range): BP systolic 76–266; BP diastolic 48–147
[~2025-09-09 09:19] MED LIST changes: +CATAPRES0.1 MG PO; +CREON DR 12,001 EACH PO; +Critic-Aid142 GM TOP; +DOCU100 PO; +HUMULIN R100 UNIT/2; +OXYC10ER PO
[2025-09-09 09:34] LABS: Calcium, Ionized (POC) 1.16 mmol/L (1.10-1.46); Chloride (POC) 111 mmol/L (98-108); Creatinine (POC) 1.1 mg/dL (0.8-1.3); Glucose (ISTAT POC) 411 mg/dL (70-99); Hematocrit (POC) 45.0 % (41.0-53.0); Hemoglobin (POC) 15.3 g/dL (13.5-17.5); Potassium (POC) 5.5 mmol/L (3.5-5.5); Sodium (POC) 142 mmol/L (135-148); Total CO2 (POC) 13 mmol/L (21-32)
[2025-09-09 09:42] LABS: Hematocrit 46.5 % (37.0-53.0); Hemoglobin 14.7 g/dL (13.5-17.5); Mean Corpuscular HGB Conc 31.6 g/dL (31.5-36.5); Mean Corpuscular Volume 94 fL (80-100); NRBC ABSOLUTE 0.04 K/mm3 (0.00-0.02); NRBC Auto 0.2 /100 WBC (0.0-0.2); Platelet Count 394 K/mm3 (150-400); RDW Coefficient Variation 13.3 % (11.7-14.2); RDW Standard Deviation 45.3 fL (35.1-46.3)
[2025-09-09] MEDS ORDERED: Propofol 10mg/ml 20 ml Vial (Procedural) IV ONE ×3 (09:45→14:25)
[2025-09-09] MEDS ORDERED: NS 1,000 ML IV SCH ×2 (09:55→10:00)
[2025-09-09] MEDS ORDERED: LORazepam 2 MG/ML 1ML Injection IV ONE ×2 (10:05→13:24)
[2025-09-09] MEDS ORDERED: CefTRIAXone Sodium 2,000 MG in NS 100 ML IV ONE (10:05)
[2025-09-09] MEDS ORDERED: Vancomycin HCL 2,000 MG in NS 520 ML IV ONE (10:05)
[2025-09-09] MEDS ORDERED: SuccINYLCHOLINE Chloride 20 MG/ML 10ML Injection IV ONE (10:10)
[2025-09-09] MEDS ORDERED: Etomidate 2MG / ML 10ML Vial IV ONE ×2 (10:10→13:24)
[2025-09-09 10:16] LABS: BASOPHILS ABSOLUTE MAN 0.00 K/mm3 (0.00-0.23); BASOPHILS PERCENT MAN 0 % (0-2); EOSINOPHILS ABSOLUTE MAN 0.00 K/mm3 (0.00-0.68); EOSINOPHILS PERCENT MAN 0 % (0-6); LYMPHOCYTES ABSOLUTE MAN 6.09 K/mm3 (0.84-5.20); LYMPHOCYTES PERCENT MAN 32 % (21-46); MONOCYTES ABSOLUTE MAN 1.14 K/mm3 (0.16-1.47); MONOCYTES PERCENT MAN 6 % (4-13); MYELOCYTE ABSOLUTE MAN 0.38 K/mm3 (0.00-0.00); MYELOCYTE PERCENT MAN 2 % (0-0); NEUTROPHILS ABSOLUTE MAN 11.43 K/mm3 (1.96-9.15); SEG NEUTROPHILS PERCENT MAN 60 % (41-73)
[2025-09-09] MEDS ORDERED: FentaNYL Citrate 50 MCG/ML 2 ML Injection IV ONE (10:20)
[2025-09-09 10:35] LABS: pH Blood Venous 7.08 (7.34-7.37)
[2025-09-09 10:59] LABS: Source, Urine Foley catheter
[2025-09-09 11:03] LABS: Bilirubin, Urine Neg (Neg); Glucose Qualitative, Urine 3+ (Neg); Ketones, Urine Neg (Neg); Leukocyte Esterase, Urine Neg (Neg); Protein, Urine 4+ (Neg); Specific Gravity, Urine 1.015 (1.003-1.022); Urobilinogen, Urine NORM (Normal)
[2025-09-09 11:26] LABS: Color, Urine Pale Yellow (P-Yellow)
[2025-09-09 11:29] LABS: White Blood Cells, Urine 0-2 /hpf (0-5)
[2025-09-09 11:30] LABS: Prothrombin Time Results 27.0 Sec (9.7-11.5)
[2025-09-09] MEDS ORDERED: levETIRAcetam 2,000 MG in NS 100 ML IV ONE (11:30)
[2025-09-09 11:47] LABS: Ethanol (Alcohol), Blood, Med <3 mg/dL; Magnesium, Blood 1.6 mg/dL (1.6-2.4)
[2025-09-09 11:48] LABS: Alanine Aminotransfer (ALT/SGP 83 U/L (12-78); Albumin, Blood 2.9 g/dL (3.4-5.0); Albumin/Globulin Ratio 0.9 (0.8-1.8); Anion Gap 20 mmol/L (3-11); Aspartate Aminotrans (AST/SGOT 58 U/L (12-37); Bilirubin, Total 0.3 mg/dL (0.1-1.0); Blood Urea Nitrogen 20 mg/dL (8-24); CO2, Blood 14 mmol/L (21-32); Calcium, Blood 8.6 mg/dL (8.5-10.1); Chloride, Blood 109 mmol/L (98-108); Creatinine, Blood 0.94 mg/dL (0.60-1.20); Globulin, Blood 3.3 g/dL (2.2-4.0); Glucose, Blood 402 mg/dL (70-99); Potassium, Blood 3.8 mmol/L (3.5-5.5); Sodium, Blood 139 mmol/L (136-145); Total Protein, Blood 6.2 g/dL (6.4-8.2)
[2025-09-09 11:50] LABS: U Amphetamine Screen Not Detected; U Barbiturate Screen Not Detected; U Benzodiazapine Screen Not Detected; U Buprenorphine Screen Not Detected; U Cannabinoids Screen DETECTED; U Cocaine Screen Not Detected; U Methadone Screen Not Detected; U Methamphetamine Screen Not Detected; U Opiates Screen Not Detected; U Oxycodone Screen Not Detected; U Phencyclidine Screen Not Detected
[2025-09-09] MEDS ORDERED: SuccINYLCHOLINE Chloride 100 MG/5 ML 5MLSYR IV ONE (13:24)
[2025-09-09 13:48] LABS: pH Blood Venous 7.30 (7.34-7.37)
[2025-09-09] MEDS ORDERED: FLU VACC TS2025-26(6MOS UP)/PF 45 MCG/0.5 ML SYRINGE IM SCH (14:50)
--- NOTE | 2025-09-09 15:35 | NUR ---
ASSUMED CARE THIS RN ASSUMED CARE OF PATIENT AT 1445 WITH PRECEPTOR WILIAN LEMA. PATIENT IS CURRENTLY INTUBATED AND SEDATED. VENT SETTINGS ARE 16/500/5/40% FIO2 WITH PT SPO2 >96%. ETT IS 8.0 AND 23CM AT GUMS. HE IS ON PROPOFOL DRIP AT 40MCG/KG/MIN AND TUGGING ON RESTRAINTS AND MOVING ALL 4 LIMBS SPONTANEOUSLY. PIV IN HIS RIGHT INDEX FINGER, RIGHT FOREARM, AND LEFT HAND. HE DOES NOT FOLLOW COMMANDS OR RESPOND TO QUESTIONS. HIS SYSTOLIC BP IS >190, HR IS 110-120S WITH MONITOR SHOWING SINUS TACHYCARDIA. HE HAS OG TUBE CLAMPED. ELIZABETH CATHETER PATENT AND DRAINING CLEAR YELLOW URINE TO GRAVITY. BED IN LOWEST POSITION.
[2025-09-09] MEDS ORDERED: Hydrogen Peroxide 1.5 % Solution MT SCH (16:00)
[2025-09-09] MEDS ORDERED: NiCARdipine HCL 50 MG in NS 250 ML IV SCH (16:05)
[2025-09-09] MEDS ORDERED: Gabapentin 250 MG/5 ML ORAL SYRINGE PT SCH (16:05)
--- NOTE | 2025-09-09 16:17 | NUR ---
RING SILVER COLORED RING REMOVED FROM L 4TH FINGER DUE TO HAND SWELLING. RING PLACED IN SPECIMEN CUP WITH PT LABEL AND LOCKED IN LOCK BOX IN ICU 11.
[2025-09-09] MEDS ORDERED: Mag Sulfate 1 GM/D5% 100ML 100 ML IV STA (17:02)
--- NOTE | 2025-09-09 17:37 | NUR ---
WARFARIN INFO PER PT'S SPOUSE DONALD: [facility] IN[facility] 2-3 LAST INR 2.3 ON 09/07/25 LAST DOSE OF WARFARIN 4MG ON 09/08/25 INFORMATION PASSED TO PHARMACY
--- NOTE | 2025-09-09 17:41 | NUR ---
SPOUSE CONCERN/TRAZODONE PT'S SPOUSE EXPRESSED CONCERN REGARDING PREVIOUS EXTUBATION/HOSPITAL EXPERIENCE. SHE REPORTS PT HAD A HEAD INJURY IN 1993 AND PTSD RELATED TO THAT HOSPITALIZATION. PT TAKES TRAZODONE 50MG FOR ANXIETY A FEW TIMES A YEAR, BUT HOSPITALIZATION TENDS TO INCREASE PT'S ANXIETY. LAST HOSPITALIZATION MEDICATION WAS ORDERED AT BEDTIME FOR INSOMNIA WHICH LED TO INCREASED AGITATION AND ANXIETY PER SPOUSE. SPOUSE REQUESTS PRN TRAZODONE FOR POST-EXTUBATION TO PREVENT DISTRESS.
--- NOTE | 2025-09-09 18:25 | NUR ---
NIH STROKE SCALE UNABLE TO ASSESS DUE TO INTUBATION/SEDATION
--- NOTE | 2025-09-09 18:28 | NUR ---
SHIFT SUMMARY PT RECEIVING PROPOFOL 30MCG/KG/MIN AND LR 125ML/HR. RASS -2. PT BECOMES RESTLESS DURING CARE, PULLS AGAINST RESTRAINTS AND MOVES LOWER EXTREMITIES. PT INTERMITTENTLY OPENS EYES BUT UNABLE TO MAKE EYE CONTACT OR FOLLOW COMMANDS. PUPILS EQUAL. L PUPIL APPEARS CLOUDY AND MORE SLUGGISH THAN R PUPIL. COUGH/GAG INTACT. SINUS ON MONITOR WITH RATE IN 80S. PT'S BP HAS BEEN LABILE WITH SBP VARYING BETWEEN 90S-210S. BP CUFF SITES ALTERNATED AND BP CORRELATES. OGT CLAMPED. ABDOMEN SOFT, NON-DISTENDED. LARGE LIQUID BM IN ED, NONE SINCE ADMISSION. TEMP ELIZABETH PATENT AND DRAINING TO GRAVITY. TMAX 99.5. BLANKETS REMOVED AND FAN IN PLACE. PT'S SPOUSE DONALD UPDATED VIA TELEPHONE AND PLANS TO ARRIVE TOMORROW AM TO BE PRESENT FOR WEANING TRIAL.
[2025-09-09] MEDS ORDERED: Cetylpyridinium Chloride 1 EA MISC MT SCH (20:00)
[2025-09-09] MEDS ORDERED: Insulin Glargine 100 Unit/ML 3 ML SYR SC SCH (21:00)
[2025-09-10] VITALS (82 sets, daily range): BP systolic 90–214; BP diastolic 50–103
[2025-09-10 00:05] LABS: C DIFFICILE DNA NEGATIVE (Negative)
[2025-09-10 03:51] LABS: Prothrombin Time Results 36.7 Sec (9.7-11.5)
[2025-09-10 03:59] LABS: Anion Gap 11.0 mmol/L (3-11); Blood Urea Nitrogen 24.0 mg/dL (8-24); CO2, Blood 21.0 mmol/L (21-32); Calcium, Blood 8.3 mg/dL (8.5-10.1); Chloride, Blood 114.0 mmol/L (98-108); Creatinine, Blood 1.31 mg/dL (0.60-1.20); Glucose, Blood 135.0 mg/dL (70-99); Potassium, Blood 3.7 mmol/L (3.5-5.5); Sodium, Blood 142.0 mmol/L (136-145)
[2025-09-10 04:39] LABS: BASOPHILS ABSOLUTE AUTO 0.02 K/mm3 (0.00-0.23); BASOPHILS PERCENT AUTO 0 % (0-2); EOSINOPHILS ABSOLUTE AUTO 0.03 K/mm3 (0.00-0.68); EOSINOPHILS PERCENT AUTO 0 % (0-6); Hematocrit 28.2 % (37.0-53.0); Hemoglobin 9.6 g/dL (13.5-17.5); IMMATURE GRAN ABSOLUTE AUTO 0.03 K/mm3 (0.00-0.10); IMMATURE GRAN PERCENT AUTO 0 % (0-1); LYMPHOCYTES ABSOLUTE AUTO 1.12 K/mm3 (0.84-5.20); LYMPHOCYTES PERCENT AUTO 13 % (21-46); MONOCYTES ABSOLUTE AUTO 0.58 K/mm3 (0.16-1.47); MONOCYTES PERCENT AUTO 7 % (4-13); Mean Corpuscular HGB Conc 34.0 g/dL (31.5-36.5); NEUTROPHILS ABSOLUTE AUTO 6.89 K/mm3 (1.96-9.15); NEUTROPHILS PERCENT AUTO 80 % (41-73); NRBC ABSOLUTE 0.00 K/mm3 (0.00-0.02); NRBC Auto 0.0 /100 WBC (0.0-0.2); Platelet Count 205 K/mm3 (150-400); RDW Coefficient Variation 13.6 % (11.7-14.2); RDW Standard Deviation 43.4 fL (35.1-46.3)
[2025-09-10 04:40] LABS: Mean Corpuscular Volume 87 fL (80-100)
[2025-09-10] MEDS ORDERED: Pantoprazole Sodium 40 MG Injection IV SCH (06:00)
--- NOTE | 2025-09-10 06:18 | NUR ---
SHIFT SUMMARY PT ON VENT AND SEDATED ON PROPOFOL, WITHDRAWS TO PAIN, BUT NOT FOLLOWING COMMANDS. BILAT BKA, BUT MAEEX4 SPONT. LARGE, INCONT, LOOSE STOOL AT START OF SHIFT, SENT FOR C-DIFF WHICH CAME BACK NEGATIVE. RECTAL TUBE PLACED FOR LOOSE STOOLS. SIGNIF DROP IN HGB/HCT ON THIS AM LABS, WELL MARGINAL U.O T/O NIGHT. DR RAHMAN UPDATED WITH LABS AND LOW U.O. ORDER RECEIVED TO RECHECK H/H AT 0830. NO VISIBLE SIGNS OF BLEEDING NOTED AT THIS TIME. BP A BIT SOFT AT BEGINNING OF SHIFT, BUT NORMALIZED QUICKLY. MAP >[address] RAHMAN AWARE. WILL UPDATE DAY RN WITH ALL OUTSTANDING ISSUES AND PROBLEMS TO DATE.
[2025-09-10 08:47] LABS: Hematocrit 28.3 % (37.0-53.0); Hemoglobin 9.5 g/dL (13.5-17.5)
--- NOTE | 2025-09-10 08:59 | NUR ---
MORNING STATUS, HYPERTENTSION/AMLODIPINE, EXTUBATION, LOW HGB: THIS MORNING, PATIENT WAKING TO VERBAL STIMULI, ANSWERING YES/NO QUESTIONS, FOLLOWING DIRECTIONS, AND ABLE TO LIFT BOTH THIGHS AND SQUEEZE BOTH HANDS. PATIENT NODDED THAT HE CAN SEE OUT OF BOTH EYES. ELIZABETH IN PLACE AND DRAINING FREELY. PATIENT STARTED SPONTANEOUS BREATHING TRIAL AT 0805. DR. MARTIN AND DR. MCCLELLAN AT BEDSIDE. DISCUSSED PATIENT'S BLOOD PRESSURES AND AMLODIPINE. INITIALLY IT WAS DISCONTINUED, BUT PATIENT EXPERIENCED ELEVATED BPS WITH HOLDING OF PROPOFOL. AMLODIPINE GIVEN AND RESTARTED. IN ADDITION, DISCUSSED PATIENT'S DROP IN HGB. AWAITING REDRAW THIS AM. PATIENT EXTUBATED AT 08:50. PATIENT TRANSITIONED TO [place]. PATIENT TOLERATING WELL. PATIENT RESTING AND FOLLOWING DIRECTIONS. SPO2 96% AND RR IN THE 20S.
[2025-09-10] MEDS ORDERED: FERROUS GLUCON324 M4 PO (11:26)
[2025-09-10] MEDS ORDERED: Ascorbic Acid500 M2 PO (11:26)
[2025-09-10] MEDS ORDERED: VITAMIN D31000 UNI1 PO (11:26)
[2025-09-10] MEDS ORDERED: HUMALOG KW100 UNIT/1 SC (11:28)
[2025-09-10] MEDS ORDERED: GLUCOPHAGE1000 M1 PO (11:31)
--- NOTE | 2025-09-10 13:56 | NUR ---
AFTERNOON UPDATE: DISCUSSED WITH DR. MCCLELLAN THAT THE MED RECONCILLIAION HAD BEEN COMPLETED WITH THE PATIENT'S , THAT HE CONTINUES TO HAVE LOW URINE OUTPUT (ABOUT 40-45ML/HR) AND REQUESTED A CPAP FOR WHILE THE PATIENT IS IN THE HOSPITAL. NEW ORDERS PLACED. WILL CONTINUE IVFS ORDERED.
[2025-09-10] MEDS ORDERED: HydrALAZINE HCl 20 MG / ML 1ML Vial IV PRN (15:50)
--- NOTE | 2025-09-10 15:55 | NUR ---
HYPERTENSION: PATIENT WAS EXPERIENCING SBP IN THE 170S-190S. NOTIFIED DR. MCCLELLAN. NEW ORDERS FOR PO COZAAR. AFTER GIVEN TO THE PATIENT, PATIENT'S SBP INCREASED TO 214 FOR MULTIPLE READINGS IN ADDITION TO HAVE SOME ST ELEVATION IN THE MCL. PATIENT ASYMPTOMATIC (NO N/V, CHEST PAIN, NUMBNESS/TINGLING, DIAPHORESIS, HEADACHE). NOTIFIED DR. MCCLELLAN. NEW ORDERS RECEIVED AND ADMINISTERED FOR HYDRALAZINE PRN.
[2025-09-10] MEDS ORDERED: Insulin Human Lispro 100 Units/ML 3ML Syringe SC SCH (16:30)
[2025-09-10] MEDS ORDERED: Vancomycin (Pharmacy Consult) IV PRN (17:05)
[2025-09-10] MEDS ORDERED: Amylase/Lipase/Protease DR Cap 12,000 PO SCH (17:30)
--- NOTE | 2025-09-10 18:34 | NUR ---
LATE ENTRY: POSITIVE BLOOD CULTURES NOTIFIED DR. MCCLELLAN THAT PATIENT HAD POSITIVE BLOOD CULTURES. NEW ORDERS RECEIVED.
--- NOTE | 2025-09-10 18:40 | NUR ---
SHIFT SUMMARY: NEURO: PATIENT ALERT AND ORIENTED X4 THROUGHOUT THE SHIFT. CALM, COOPERATIVE AND FOLLOWING DIRECTIONS. EQUAL STRENGTH IN ALL 4 EXTREMITIES. NO FACIAL DROOP NOTED. SPEECH IS CLEAR. NO VISUAL DISTURBANCES NOTED. PATIENT FATIGUED AND FALLS ASLEEP EASILY. DENIED PAIN AND DISCOMFORT THROUGHOUT THE SHIFT. RESPIRATORY: PATIENT QUICKLY TRANSITIONED TO ROOM AIR POST-EXTUBATION. PATIENT DENIED SHORTNESS OF BREATH OR DIFFICULTY BREATHING. RR IN THE LOW 20S. SPO2 >94%. REPORTED THAT SHE WILL GET HIM TO A SLEEP STUDY AN OUTPATIENT TO GET A CPAP BACK AT HOME FOR HIM TO USE. CARDIAC: PATIENT EXPERIENCED HYPERTENSION THIS AFTERNOON. SEE NURSES NOTE. AFTER SCHEDULED MEDICATION AND PRN, PATIENT'S SBP REMAINED IN THE 150S-180S. PATIENT DENIED CHEST PAIN OR DISCOMFORT. NOTED THAT PATIENT HAD A SMALL FIRST DEGREE HB THIS AFTERNOON. DISCUSSED WITH DR. MCCLELLAN, NO NEW ORDERS AT THIS TIME. GI/: TOLERATING PO INTAKE WITHOUT DIFFICULTY. LOW URINE OUTPUT FOR MOST OF THE SHIFT (40-45 ML/HR). BY THE EVENING, URINE OUTPUT INCREASING IN VOLUME AND IMPROVING IN COLOR (LIGHT YELLOW). PSYCHSOCIAL: PATIENT CALM AND COOPERATIVE. PATIENT'S AT BEDSIDE THIS MORNING. SHE ASSISTS THE PATIENT AT HOME. SHE REPORTED THAT THEY HAVE ALL OF THE ASSIST DEVICES THAT THEY NEED.
[2025-09-10] MEDS ORDERED: Insulin Glargine 100 Unit/ML 3 ML SYR SC SCH (21:00)
[2025-09-10] MEDS ORDERED: Labetalol HCL 5 MG/ML 4ML Injection (Single Dose) IV PRN (21:00)
[2025-09-11] VITALS (37 sets, daily range): BP systolic 141–212; BP diastolic 68–98
[2025-09-11] MEDS ORDERED: Isosorbide Mononitrate 30 MG TABCR PO ONE (02:15)
[2025-09-11 05:08] LABS: Hematocrit 27.2 % (37.0-53.0); Hemoglobin 9.3 g/dL (13.5-17.5); Mean Corpuscular HGB Conc 34.2 g/dL (31.5-36.5); Mean Corpuscular Volume 85 fL (80-100); NRBC ABSOLUTE 0.00 K/mm3 (0.00-0.02); NRBC Auto 0.0 /100 WBC (0.0-0.2); Platelet Count 195 K/mm3 (150-400); RDW Coefficient Variation 13.4 % (11.7-14.2); RDW Standard Deviation 42.3 fL (35.1-46.3)
[2025-09-11 05:21] LABS: Prothrombin Time Results 30.5 Sec (9.7-11.5)
[2025-09-11 05:28] LABS: Anion Gap 11.0 mmol/L (3-11); Blood Urea Nitrogen 13.0 mg/dL (8-24); CO2, Blood 22.0 mmol/L (21-32); Calcium, Blood 8.3 mg/dL (8.5-10.1); Chloride, Blood 111.0 mmol/L (98-108); Creatinine, Blood 0.81 mg/dL (0.60-1.20); Glucose, Blood 192.0 mg/dL (70-99); Potassium, Blood 2.8 mmol/L (3.5-5.5); Sodium, Blood 141.0 mmol/L (136-145)
--- NOTE | 2025-09-11 05:49 | NUR ---
SHIFT SUMMERY PT HAS BEEN ALERT AND ORIENTED X4. HE HAS BEEN SR ON THE COMMERCIAL [employer] SPECIALIST. HYPERTENSIVE AT TIMES. MD WAS NOTIFED ON 2 SEPERATE OCCASIONS AND MEDICATIONS WERE GIVEN ORDERED. PT HAS BEEN AFEBRILE. HE HAS A ELIZABETH CATHETER AND A RECTAL TUBE, BOTH INTACT PATENT AND DRAINING TO GRAVITY. HE IS ON ROOM AIR W/OXYGEN SAT >95%. HE HAS VOICED NO COMPLAINTS OVERNIGHT. PT HAS BEEN PLEASANT AND COOPERATIVE WITH CARE.
[2025-09-11] MEDS ORDERED: NS 250 ML IV PRN (08:15)
[2025-09-11] MEDS ORDERED: Cholecalciferol 1000 Unit Tablet (=25MCG) PO SCH (09:00)
--- NOTE | 2025-09-11 11:53 | NUR ---
ASSUMPTION OF CARE [facility] PT RESTING IN BED, ALERT AND ORIENTED X4. PT ANSWERS QUESTIONS APPROPRIATLEY, FOLLOWS DIRECTION WHEN PROMPTED AND IS ABLE TO MAKE HIS NEEDS KNOWN. PT MOVES EXTREMITIES EQUALLY BILATERALLY. BILATERAL BKA. PT UP TO RECLINER WITH LIFT. PT DENIES PAIN AT TIME OF ASSESSMENT. HR 80-90'S SINUS, SBP 170-190'S. PT DENIES CP/PRESSURE. PT ON RA, OXYGEN SATURATION >95%. ABDOMEN SOFT, BOWEL TONES ACTIVE THROUGHOUT. ELIZABETH IN PLACE ON ASSESSMENT, REMOVED THIS AM. PIV IN PLACE TO RIGHT HAND AND LEFT HAND, POWERGLIDE IN PLACE TO MAHNAZ. CALL LIGHT WITHIN REACH, CARE CONTINUES.
--- NOTE | 2025-09-11 17:24 | NUR ---
SHIFT SUMMARY PT CONTINUES TO REST IN BED, ALERT AND ORIENTED X4. PT ANSWERS QUESTIONS APPROPRIATLEY, FOLLOWS DIRECTION WHEN PROMPTED AND IS ABLE TO MAKE HIS NEEDS KNOWN. PT MOVES EXTREMTIIES EQUALLY BILATERALLY, ASSISTS WITH REPOSITIONING. PT DENIES PAIN THIS SHIFT. HR 80-90'S SINUS, SBP 170-190'S, MEDICATED PER EMAR, PROVIDER AWARE. PT DENIES CP/PRESSURE. ABDOMEN SOFT, BOWEL TONES ACTIVE THROUGHOUT. RECTAL TUBE REMOVED THIS SHIFT. ELIZABETH REMOVED THIS SHIFT, PT ABLE TO VOID IN URINAL. PIV IN PLACE TO RIGHT HAND AND LEFT HAND, POWERGLIDE IN PLACE TO MAHNAZ, SL. BED IN LOWEST POSIITON, CALL LIGHT WITHIN REACH, CARE CONTINUES.
[2025-09-11 17:40] LABS: Vancomycin, Trough 13.4 ug/mL (5.0-10.0)
--- NOTE | 2025-09-11 18:29 | NUR ---
PT UPDATE PT TO MRI WITH CEMENT RUBBER.
[2025-09-12] VITALS (26 sets, daily range): BP systolic 113–181; BP diastolic 69–83
[2025-09-12 04:13] LABS: Hematocrit 25.6 % (37.0-53.0); Hemoglobin 8.5 g/dL (13.5-17.5); Mean Corpuscular HGB Conc 33.2 g/dL (31.5-36.5); Mean Corpuscular Volume 86 fL (80-100); NRBC ABSOLUTE 0.00 K/mm3 (0.00-0.02); NRBC Auto 0.0 /100 WBC (0.0-0.2); Platelet Count 190 K/mm3 (150-400); RDW Coefficient Variation 13.4 % (11.7-14.2); RDW Standard Deviation 42.0 fL (35.1-46.3)
[2025-09-12 05:00] LABS: Anion Gap 8.0 mmol/L (3-11); Blood Urea Nitrogen 12.0 mg/dL (8-24); CO2, Blood 25.0 mmol/L (21-32); Calcium, Blood 8.2 mg/dL (8.5-10.1); Chloride, Blood 112.0 mmol/L (98-108); Creatinine, Blood 0.9 mg/dL (0.60-1.20); Glucose, Blood 137.0 mg/dL (70-99); Magnesium, Blood 1.6 mg/dL (1.6-2.4); Potassium, Blood 3.6 mmol/L (3.5-5.5); Sodium, Blood 141.0 mmol/L (136-145)
[2025-09-12 05:09] LABS: Prothrombin Time Results 18.0 Sec (9.7-11.5)
--- NOTE | 2025-09-12 06:28 | NUR ---
PATIENT ALERT AND ORIENT X4 THIS SHIFT. MOVES EXTREMITIES WITHOUT COMPLICATIONS. BILATERAL BKA. TURN Q2 SCHEDULE WITH MINIMAL NURSE ASSIST. REPORTS NO PAIN OR DISCOMFORT AT THIS TIME. URINATES PER URINAL. NSR TO MONITOR. SBP WITHIN DESIRED RANGE <180 WITHOUT USE OF PRN MEDICATIONS. ROOM AIR THROUGHOUT SHIFT. CONTINUES AC/HS BLOOD GLUCOSE MONITORING. TOLERATING DIET WELL THIS SHIFT. SAFETY AND COMFORT MAINTAINED.
[2025-09-12] MEDS ORDERED: Heparin Sodium,Porcine/0.5 NS 500 ML IV SCH (07:55)
[2025-09-12] MEDS ORDERED: Dose Adjust by Pharmacy XX STA ×2 (07:55→14:59)
[2025-09-12 08:06] LABS: Anti-Xa UFH, PHA Monitoring <0.10 IU/mL
--- NOTE | 2025-09-12 09:42 | NUR ---
AM NOTE: PATIENT ALERT AND ORIENTED X4. DENIES PAIN. MOVING ALL EXTREMITIES. BILATERAL BKA. ON ROOM AIR, LUNG SOUNDS CLEAR BUT DIMINISHED. EVEN AND UNLABORED RESPIRATIONS. DENIES SOB/COUGH. TELE READING SINUS RHYTHM WITH HR 70'S. BLOOD PRESSURE ELEVATED WITH SBP 160-180'S. HEPARIN STARTED THIS MORNING. DENIES CHEST PAIN/PRESSURE/PALPIATIONS. NO EDEMA NOTED. BOWEL TONES PRESENT. TOLERATING PO DIET WITHOUT ISSUES. USING URINAL TO VOID. DENIES ABDOMINAL PAIN/NAUSEA. SKIN PALE WITH SCATTERED BRUISING. DR. MCCLELLAN TO BEDSIDE THIS MORNUING. ORDERS TO DISCONTINUE PO ASPIRIN. ORDER PLACED. PLAN TO MEDICATED FOR BLOOD PRESSURE AND UPDATE DR. MCCLELLAN NEEDED. CALL LIGHT IN REACH. PATIENT DENIES NEEDS AT THIS TIME.
--- NOTE | 2025-09-12 10:34 | NUR ---
DR. MCCLELLAN UPDATED ON ELEVATED BLOOD PRESSURE. DR. MCCLELLAN TO ADJUST MEDICATIONS AND PLACE ORDERS. PATIENT UPDATED ON PLAN.
--- NOTE | 2025-09-12 13:08 | NUR ---
IMAGES PUSHED TO [facility] PER DR. MCCLELLAN REQUEST
[2025-09-12] MEDS ORDERED: Heparin Sodium 5000 Units/ML 1ML MDV IV ONE (15:00)
--- NOTE | 2025-09-12 18:33 | NUR ---
SHIFT SUMMARY: NO ACUTE CHANGES. PATIENT REMAINS ALERT AND ORIENTED. USING CALL LIGHT FOR NEEDS. MOVING ALL EXTREMITIES. DENIES PAIN. VITAL SIGNS STABLE. BLOOD PRESSURE IMPROVED THROUGHOUT SHIFT. CONTINUES TO BE IN SINUS RHYTHM. ON ROOM AIR. BED BATH COMPLETED. ONE BOWEL MOVEMENT TODAY. USING URINAL TO VOID. HEPARIN GTT INFUSING PER EMAR. DENIES NEEDS AT THIS TIME.
--- NOTE | 2025-09-13 01:31 | NUR ---
RECEIVED A BED ASSIGNMENT FOR PATIENT TO BE TRANSFERRED TO ROOM 339. FOLLOWING NOTIFYING PATIENT, PATIENT EXPRESSED SIGNIFICANT CONCERN BEING TRANSFERRED TO THE 3RD FLOOR. PATIENT UPDATED PATIENT SPOUSE NOE WHOM REQUESTED TO SPEAK TO THIS NURSE. NOE STATES, "HE DOES NOT WANT TO GO TO 3RD FLOOR AND IF THAT IS THE DECISION THAT IS MADE I WILL LIKE CHRIS DISCHARGED OR I WOULD BE TAKING HIM HOME AMA". EDUCATED/UPDATED THE PATIENT AND PATIENT SPOUSE TO THE REASONING ON PATIENT BEING TRANSFERRED OUT OF ICU. ALSO EXPRESSING REASONING WHY PATIENT IS STILL CURRENTLY IN THE HOSPITAL NOTING THE CONCERNS FOR PATIENT INR/ANTI-XA NOT IN THERAPEUTIC RANGE AND THE GOAL IS TO BE THERAPEUTIC PRIOR TO DISCHARGE RELATED TO PATIENT MECHANICAL VALVE AND THE SERIOUS RISK FOR HARM TO PATIENT. PATIENT WELL PATIENT SPOUSE REPORTS THAT THEY AWARE OF THIS CONCERN FULLY STATING THEY HAVE A MACHINE AT HOME TO MONITOR THE INR WELL LOVENOX. NOE ALSO STATES, "IF I NEED TO GIVE AN EXTRA DOSE OF HIS WARFARIN AT HOME TO MAKE HIM THERAPEUTIC THAN I COULD BUT I HAVE A MACHINE TO MONITOR THE INR." MADE CHARGE NURSE, CLERICAL ORDER FILLER, WELL DR. RAHMAN AWARE OF PATIENT AND PATIENT FAMILY CONCERNS AND REQUESTS. UPON FURTHER REVIEW THIS NURSE WAS NOTIFIED OF PATIENT TO BE TRANSFERRED TO ICU 7. PATIENT WELL PATIENT SPOUSE (NOE) NOTIFIED OF PATIENT NEW TRANSFER LOCATION. ALL QUESTIONS AND CONCERNS ADDRESSED AT THIS TIME TO THE BEST OF THIS NURSE ABILITY. PATIENT EXPRESSES AGREEANCE WELL RELIEF TO CURRENT PLAN OF CARE WELL CURRENT PLANNED ROOM ASSIGNMENT. SAFETY MAINTAINED THROUGHOUT INTERACTION. NO S/S OF DISTRESS OR DISCOMFORT AT TIME OF TRANSFER TO ROOM ICU7. ALL BELONGINGS TRANSFERRED WITH PATIENT TO NEW ROOM ASSIGNMENT. CONTINUES ON HEPARIN AT RATE 22 U/KG/HR. NEXT ANTI XA SCHEDULED FOR 0300. CONTINUES ALERT AND ORIENT X4 AND ON ROOM AIR. REPORTS NO PAIN.
[2025-09-13 03:00] VITALS: BP 119/66
[2025-09-13 03:33] LABS: Hematocrit 27.6 % (37.0-53.0); Hemoglobin 9.3 g/dL (13.5-17.5); Mean Corpuscular HGB Conc 33.7 g/dL (31.5-36.5); Mean Corpuscular Volume 87 fL (80-100); NRBC ABSOLUTE 0.00 K/mm3 (0.00-0.02); NRBC Auto 0.0 /100 WBC (0.0-0.2); Platelet Count 189 K/mm3 (150-400); RDW Coefficient Variation 13.3 % (11.7-14.2); RDW Standard Deviation 42.4 fL (35.1-46.3)
[2025-09-13 03:48] LABS: Anti-Xa UFH, PHA Monitoring 0.34 IU/mL; Prothrombin Time Results 15.6 Sec (9.7-11.5)
[2025-09-13 03:53] LABS: Anion Gap 8.0 mmol/L (3-11); Blood Urea Nitrogen 15.0 mg/dL (8-24); CO2, Blood 24.0 mmol/L (21-32); Calcium, Blood 8.6 mg/dL (8.5-10.1); Chloride, Blood 112.0 mmol/L (98-108); Creatinine, Blood 0.89 mg/dL (0.60-1.20); Glucose, Blood 100.0 mg/dL (70-99); Potassium, Blood 3.4 mmol/L (3.5-5.5); Sodium, Blood 141.0 mmol/L (136-145)
[2025-09-13] MEDS ORDERED: Dose Adjust by Pharmacy XX STA (03:54)
--- NOTE | 2025-09-13 06:51 | NUR ---
PT STABLE SINCE ASSUMING CARE AT 0000. PT TOLERATING IV HEPARIN INFUSION W/O PROBLEM. NO S/S BLEEDING/BRUISING. PT AOX4, ON BEDREST. PT IS ABLE TO MAKE NEEDS KNOWN AND USES CALL LIGHT APPROPRIATELY. BED ALARM IN PLACE. PT HAS B/L BKA, SKIN P/W/D INTACT. NO SZ ACTIVITY THIS SHIFT.
[2025-09-13 07:00] VITALS: BP 140/74
[2025-09-13 09:00] VITALS: BP 138/77
--- NOTE | 2025-09-13 09:37 | NUR ---
AM NOTE: THIS RN ASSUMED CARE OF PT AT APPROX 0700. PT A/OX4, ABLE TO MAKE NEEDS KNOWN AND PARTICIPATE IN CARE. VSS. HR 60-70'S, SINUS RHYTHM ON MONITOR. SBP 130-140'S, MAP >65. DENIES CHEST PAIN/PRESSURE. SPO2 >90% ON RA, RESPIRATIONS EVEN & UNLABORED. AFEBRILE. UP TO CHAIR W/ LIFT THIS AM FOR BREAKFAST. TOLERATING PO INTAKE WELL. PT ABLE TO VOID W/ URINAL INDEPENDENTLY. HEPARIN GTT INFUSING PER EMAR, MANAGED BY PHARMACY. NO OTHER NEEDS AT THIS TIME, CALL LIGHT IN REACH.
[2025-09-13 10:00] VITALS: BP 124/72
[2025-09-13 10:49] LABS: Ferritin, Serum 340.0 ng/mL (26-388); Total Iron Binding Capacity 224.0 ug/dL (250-450)
[2025-09-13 11:00] VITALS: BP 135/70
[2025-09-13 12:00] VITALS: BP 170/78
[2025-09-13] MEDS ORDERED: AMLO10 PO (12:16)
[2025-09-13] MEDS ORDERED: CATAPRES0.2 M1 PO (12:17)
[2025-09-13] MEDS ORDERED: HYDCHL25 PO (12:17)
[2025-09-13] MEDS ORDERED: LOSA50 PO (12:18)
[2025-09-13] MEDS ORDERED: LEVE500 PO (12:18)
[2025-09-13] MEDS ORDERED: KLOR-CON 1010 MEQ PO (12:19)
--- NOTE | 2025-09-13 13:23 | NUR ---
DISCHARGE NOTE: PT DISCHARGED FROM ICU-7 AT APPROX 1300. PT A/OX4, VSS. PIV X2 & POWERGLIDE REMOVED BY THIS RN W/O DIFFICULTY. ALL MEDICATION EDUCATION PROVIDED BY THIS RN, PT & SPOUSE VOICED UNDERSTANDING OF TEACHING. PT ABLE TO DRESS SELF & TRANSFER FROM CHAIR TO WHEELCHAIR. PT WHEELED OUT BY THIS RN TO PRIVATE VEHICLE, ABLE TO TRANSFER TO CAR INDEPENDENTLY. MEDICATION LIST FAXED TO [facility] [facility] PER PT REQUEST.
== END 2025-09-13 13:00 | disposition home or self-care (01) | DRG 56 ==
LOC: ER 09:19 → ICUE 13:15
PROVIDERS: Emergency Medicine; Internal Medicine; Nurse Practitioner Acute Care; Physician Assistant; ADMIT Internal Medicine
PROC: 0BH17EZ Insertion of Endotracheal Airway into Trachea, Via Natural or Artificial Opening (ICD-10-PCS; principal; 2025-09-09)
PROC: 5A1935Z Respiratory Ventilation, Less than 24 Consecutive Hours (ICD-10-PCS; 2025-09-09)
PROC: 0DH673Z Insertion of Infusion Device into Stomach, Via Natural or Artificial Opening (ICD-10-PCS; 2025-09-10)
DX: I69.398 Other sequelae of cerebral infarction (principal); J96.01 Acute respiratory failure with hypoxia; G40.801 Other epilepsy, not intractable, with status epilepticus; M86.8X6 Other osteomyelitis, lower leg; E87.21 Acute metabolic acidosis; N17.9 Acute kidney failure, unspecified; I10 Essential (primary) hypertension; I25.10 Atherosclerotic heart disease of native coronary artery without angina pectoris; E11.69 Type 2 diabetes mellitus with other specified complication; K86.89 Other specified diseases of pancreas; D50.9 Iron deficiency anemia, unspecified; E78.5 Hyperlipidemia, unspecified; G25.81 Restless legs syndrome; G47.33 Obstructive sleep apnea (adult) (pediatric); E87.6 Hypokalemia; Z79.899 Other long term (current) drug therapy; Z79.82 Long term (current) use of aspirin; Z88.0 Allergy status to penicillin; Z79.4 Long term (current) use of insulin; Z79.01 Long term (current) use of anticoagulants; Z79.891 Long term (current) use of opiate analgesic; I25.2 Old myocardial infarction; Z89.432 Acquired absence of left foot; Z89.611 Acquired absence of right leg above knee; Z95.2 Presence of prosthetic heart valve; Z99.89 Dependence on other enabling machines and devices
CPT/HCPCS: 31500; 36415; 70450; 70496; 70498; 70551; 71045; 80047; 80048; 80053; 80202; 80320; 81001; 82728; 82803; 82947; 83540; 83550; 83605; 83735; 83880; 84132; 84484; 85014; 85018; 85025; 85027; 85520; 85610; 85730; 86850; 86900; 86901; 87040; 87070; 87077; 87086; 87205; 87493; 93005; 93010; 94002; 94003; 94660; 94762; 96365-59; 96366-59; 96367-59; 96368; 96375-59; 99285-25; A9270; J0330; J0360; J0696; J1644; J1815; J1953; J2060; J2470; J2704; J3010; J3373; J3475; J3480; J7030; J7040; J7050; J7120; Q9967